=== PATIENT | female | born 1940 | race Caucasian/White ===

== ENCOUNTER 2016-09-16 04:01 | Inpatient (IN) | payer MEDICARE, OTHER ==
[~2016-09-16] VITALS: Ht 160 cm; Wt 76.5 kg
[2016-09-16 04:45] VITALS: PULSE 78
[2016-09-16 04:52] LABS: ADD SCAN DIFF NO
[2016-09-16 04:57] LABS: BASOPHILS % 0.5 % (0.0-2.0); EOSINOPHILS # 0.1 10^3/ul (0.0-0.5); HEMATOCRIT 37.8 % (37.0-47.0); HEMOGLOBIN 12.6 g/dl (12.0-16.0); LYMPHOCYTES # 1.5 10^3/ul (0.8-2.9); LYMPHOCYTES % 36.9 % (15.0-51.0); MEAN CORPUSCULAR HEMOGLOBIN 31.9 pg (29.0-33.0); MEAN CORPUSCULAR HGB CONC 33.3 g/dl (32.0-37.0); MEAN CORPUSCULAR VOLUME 95.7 fl (82.0-101.0); MEAN PLATELET VOLUME 10.9 fl (7.4-10.4); MONOCYTE # 0.4 10^3/ul (0.3-0.9); MONOCYTES % 9.9 % (0.0-11.0); NEUTROPHIL # 2.1 10^3/ul (1.6-7.5); NEUTROPHILS % 50.5 % (39.0-77.0); PLATELET COUNT 109 10^3/UL (140-415); RED BLOOD COUNT 3.95 10^6/ul (4.20-5.40); RED CELL DISTRIBUTION WIDTH 14.2 % (11.5-14.5); WHITE BLOOD COUNT 4.1 10^3/ul (4.8-10.8)
--- NOTE | 2016-09-16 05:00 | ERA ---
ER Documentation Chief Complaint Date/Time DATE: 09/16/16 TIME: 04:59 Chief Complaint BIBA RA81,lethargic, generalized weakness HPI This is a 76-year-old female comes in with complaints of worsening mental status. History of hepatic encephalopathy and cirrhosis. Patient became more altered today. No fevers or chills. History per son ROS All systems reviewed and are negative except as per history of present illness. Allergies Allergies: Coded Allergies: No Known Allergy (Unverified , 09/16/16) PMhx/Soc Hx Psychiatric Problems: Yes (depression) Hx Miscellaneous Medical Probl: Yes (cirrhosis) Hx Alcohol Use: No Hx Substance Use: No Hx Tobacco Use: No Smoking Status: Never smoker Physical Exam Vitals Vital Signs Date Time Temp Pulse Resp B/P Pulse Ox O2 Delivery O2 Flow Rate FiO2 09/16/16 04:45 78 16 129/71 97 Room Air 09/16/16 04:16 97.2 72 18 135/63 98 Physical Exam Const: [] Head: Atraumatic Eyes: Normal Conjunctiva ENT: Normal External Ears, Nose and Mouth. Neck: Full range of motion..~ No meningismus. Resp: Clear to auscultation bilaterally Cardio: Regular rate and rhythm, no murmurs Abd: Soft, non tender, non distended. Normal bowel sounds Skin: No petechiae or rashes Back: No midline or flank tenderness Ext: No cyanosis, or edema Neur: Awake and alert Psych: Normal Mood and Affect Procedures/MDM EKG: Rate/Rhythm: Normal Sinus Rhythm QRS, ST, T-waves: No changes consistent w/ acute ischemia Impression: No evidence of ischemia or arrhythmia Chest X-ray 1V Interpreted by me: Soft Tissue: No acute abnormalities Bones: No acute abnormalities Mediastinum/Cardiac Silhouette/Lungs: No acute abnormalities Medical decision making: This is a 76-year-old female because of acute encephalopathy likely secondary to worsening hepatic encephalopathy. Patient will be admitted to hospitalist. Departure Diagnosis: Primary Impression: Altered mental status Qualified Code: R41.82 - Altered mental status, unspecified altered mental status type Condition: Serious DELORIS VELASQUEZRenetta September 16, 2016 05:00
--- NOTE | 2016-09-16 05:36 | RADRPT ---
PROCEDURE: XR Chest. CLINICAL INDICATION: Altered level of consciousness TECHNIQUE: An AP view of the chest was obtained. COMPARISON: No prior exam is available for comparison. FINDINGS: There is prominence of the interstitial markings. No pleural effusion or pneumothorax is seen. Th e cardiomediastinal silhouette is mildly enlarged . Calcifications are seen within the aortic arch. The osseous structures demonstrate senescent changes. IMPRESSION: 1. Mild prominence of the interstitial markings, may reflect mild underlying interstitial edema or chronic lung changes. 2. Mild cardiomegaly and aortic atherosclerosis. RPTAT: HH .Lucy Acosta MD, MD Date Time Electronically viewed and signed by .Lucy Acosta MD, MD on 09/16/2016 05:40 .G/
[2016-09-16 05:47] LABS: ALANINE AMINOTRANSFERASE 36 IU/L (13-69); ALBUMIN 3.2 g/dl (3.3-4.9); ALBUMIN/GLOBULIN RATIO 0.69; ALKALINE PHOSPHATASE 178 IU/L (42-121); ANION GAP 11 (8-16); ASPARTATE AMINO TRANSFERASE 54 IU/L (15-46); BILIRUBIN,INDIRECT 0.5 mg/dl (0-1.1); BILIRUBIN,TOTAL 0.5 mg/dl (0.2-1.3); BLOOD UREA NITROGEN 20 mg/dl (7-20); CALCIUM 10.1 mg/dl (8.4-10.2); CARBON DIOXIDE 26 mmol/L (21-31); CHLORIDE 111 mmol/L (97-110); CREATININE 1.08 mg/dl (0.44-1.00); GLUCOSE 110 mg/dl (70-220); LACTIC ACID 1.3 mmol/L (0.5-2.2); POTASSIUM 3.6 mmol/L (3.5-5.1); SALICYLATE 2.1 mg/dl (5.0-30.0); SODIUM 144 mmol/L (135-144); TOTAL PROTEIN 7.8 g/dl (6.1-8.1)
[2016-09-16 05:48] LABS: ADD UMIC YES; URINE BILIRUBIN (Dip) NEGATIVE (NEGATIVE); URINE BLOOD (Dip) 1+ (NEGATIVE); URINE COLOR LT. YELLOW (YELLOW); URINE GLUCOSE (Dip) NEGATIVE (NEGATIVE); URINE KETONES (Dip) NEGATIVE (NEGATIVE); URINE LEUKOCYTE ESTERASE (Dip) NEGATIVE (NEGATIVE); URINE NITRITE (Dip) NEGATIVE (NEGATIVE); URINE TOTAL PROTEIN (Dip) NEGATIVE (NEGATIVE); URINE UROBILINOGEN (Dip) 0.2 E.U./dL (0.1-1.0)
[2016-09-16 05:50] LABS: ACETAMINOPHEN < 10.0 ug/ml (10.0-30.0); ETHANOL < 10.0 mg/dl; TROPONIN-I < 0.012 ng/ml (0.00-0.12)
[2016-09-16 05:54] LABS: SQUAMOUS EPITHELIAL CELL,UR OCCASIONAL
--- NOTE | 2016-09-16 06:02 | RADRPT ---
PROCEDURE: CT Brain without. CLINICAL INDICATION: Altered mental status TECHNIQUE: A CT of the brain was performed utilizing axial sections from the skull base through th e vertex without contrast. The scan was reviewed in soft tissue brain and high frequency resolution bone algorithm windows. Images were reviewed on a high-resolution PACS workstation. The exam CTDI = 44.26 mGy, and the DLP = 720.23 mGy-cm. COMPARISON: None available FINDINGS: There is mild prominence of the lateral ventricles and cerebral sulci, consistent with diffuse cereb ral atrophy. There is no intracranial hemorrhage, midline shift, or mass effect. No abnormal extra- axial fluid collections are identified. There is hypoattenuation of the periventricular white matte r. The barrios-white differentiation is well preserved. The basal cisterns are patent. The posterior fossa is unremarkable. The visualized portions of the orbits are unremarkable. The paranasal sinuses and mastoid air cells are clear. No calvarial fracture or abnormality are identified. The soft tissues are unremarkable . IMPRESSION: 1. No acute intracranial abnormality. 2. Age related senescent changes with mild diffuse cerebral atrophy. 3. Mild patchy periventricular hypoattenuation, nonspecific finding, most commonly associated with microvascular ischemic changes. RPTAT: HH .Lucy Acosta MD, MD Date Time Electronically viewed and signed by .Lucy Acosta MD, on 09/16/2016 06:02 .G/
[2016-09-16] MEDS ORDERED: CHOL400T10 PO (06:03)
[2016-09-16] MEDS ORDERED: ASPI81TA3 PO (06:03)
[2016-09-16] MEDS ORDERED: DICL75TA2 PO (06:03)
[2016-09-16] MEDS ORDERED: AMLO2.5T78 PO (06:03)
[2016-09-16] MEDS ORDERED: PREG50CA PO (06:03)
[2016-09-16] MEDS ORDERED: MEMA28CA PO (06:03)
[2016-09-16] MEDS ORDERED: MECL-77 PO (06:03)
[2016-09-16] MEDS ORDERED: FER325 PO (06:03)
[2016-09-16] MEDS ORDERED: ICOS1CAP PO (06:03)
[2016-09-16] MEDS ORDERED: LACT10SO5 PO (06:03)
[2016-09-16] MEDS ORDERED: OMEP20CA16 PO (06:03)
[2016-09-16] MEDS ORDERED: OFLO5DRO46 BOTH EYES (06:03)
[2016-09-16] MEDS ORDERED: METO-448 PO (06:03)
[2016-09-16] MEDS ORDERED: NITR100C73 PO (06:03)
[2016-09-16] MEDS ORDERED: TRAM-40 PO (06:03)
[2016-09-16] MEDS ORDERED: FURO20TA3 PO (06:05)
[2016-09-16] MEDS ORDERED: LISI40TA9 PO (06:05)
[2016-09-16 06:21] LABS: BARBITURATES NEGATIVE (NEGATIVE); BENZODIAZEPINES NEGATIVE (NEGATIVE); CANNABINOIDS NEGATIVE (NEGATIVE); COCAINE NEGATIVE (NEGATIVE); OPIATES NEGATIVE (NEGATIVE)
[2016-09-16 07:10] VITALS: BP 132/60; RESP 18
[2016-09-16 07:59] VITALS: BP 138/81; RESP 18
[2016-09-16 08:34] VITALS: BMI 24.9
[2016-09-16] MEDS ORDERED: ONDANSETRON 4 MG INJ IV PRN (12:30)
[2016-09-16] MEDS ORDERED: morphine 2 MG INJ IV PRN (12:30)
[2016-09-16] MEDS: DEXTROSE 5%-0.45% NACL 1,000 ML IV SCH (12:42)
[2016-09-16 14:08] VITALS: Ht 160 cm; Wt 76.5 kg
[2016-09-16] MEDS: OFLOXACIN 0.3% 5 ML OPH BOTH EYES SCH ×3 (15:58→20:33)
[2016-09-16] MEDS: LACTULOSE ENEMA 1,000 ML BTL PR SCH ×2 (15:59→21:57)
--- NOTE | 2016-09-16 19:00 | CONS ---
DATE OF ADMISSION: 09/16/2016 DATE OF CONSULTATION: TYPE OF CONSULTATION: Gastroenterology. Dear Dr. Perez: Thank you for asking me to see Mrs. Torres in GI consultation. HISTORY OF PRESENT ILLNESS: The patient, as you know, is a 76-year-old female who at this time is admitted to the hospital because of the history of hepatic encephalopathy. According to the nursing staff, patient became lethargic, unable to recognize people, developed weakness and excessi ve sleepiness and hence she was admitted to the hospital. She has a history of cirrhosis. Reason fo r cirrhosis not very clearly known. REVIEW OF SYSTEM: Positive for depression, cirrhosis. No history of alcoholism. MEDICATIONS: Prior to this admission includes: 1. Nitrofurantoin. 2. Ferrous sulfate. 3. Amlodipine. 4. Lisinopril. 5. Lopressor. 6. Namenda. 7. Lyrica. 8. Ultram. 9. Furosemide. 10. Lactulose. 11. Ocuflox. 12. Omeprazole. PAST MEDICAL HISTORY: The other details are not available. PAST SURGICAL HISTORY: Includes possible cholecystectomy. PHYSICAL EXAMINATION: GENERAL: The patient is a 76-year-old female who at this time is lethargic, but she is abl e to answer a couple of questions. VITAL SIGNS: Temperature is 97.5, blood pressure 138/81, pulse is 66. CARDIOVASCULAR: Normal heart sounds. RESPIRATORY: Normal breath sounds. ABDOMEN: Shows soft abdomen with no palpable masses, no tenderness, no distention. LABORATORY WORKUP: Ammonia is 93, potassium 3.6, bilirubin 0.5, AST 54, ALT 36, , hemoglobin 12.6, WBC 4100. The imaging studies are not available from the GI standpoint. Chest x-ray is grossly unremarkable. CLINICAL IMPRESSION: The patient has evidence of hepatic encephalopathy. She has got hepatic flap, confusion, excessive sleepiness, history of cirrhosis in the past, etiology of cirrhosis not clear. Alcohol is not a major role here. PLAN: At this time, continue lactulose if necessary, you could add Rifaximin 550 mg b.i.d. if neces jeancarlos. Once again, doctor, thank you for this consultation. Dictated By: YIN CARRERA/REUBEN Conf#: [id number] DID#: [id number] CC: NICKI PEREZ MD;*[facility]*
[2016-09-16 19:30] VITALS: BP 138/76; RESP 16
[2016-09-16] MEDS: MEMANTINE 10 MG TAB PO SCH (20:35)
[2016-09-17] MEDS: DEXTROSE 5%-0.45% NACL 1,000 ML IV SCH ×2 (00:31→17:50)
[2016-09-17 05:42] LABS: ADD SCAN DIFF NO
[2016-09-17 06:00] LABS: BASOPHILS % 0.2 % (0.0-2.0); EOSINOPHILS # 0.1 10^3/ul (0.0-0.5); EOSINOPHILS % 1.8 % (0.0-7.0); HEMATOCRIT 39.2 % (37.0-47.0); HEMOGLOBIN 12.6 g/dl (12.0-16.0); LYMPHOCYTES # 1.7 10^3/ul (0.8-2.9); LYMPHOCYTES % 37.6 % (15.0-51.0); MEAN CORPUSCULAR HEMOGLOBIN 31.2 pg (29.0-33.0); MEAN CORPUSCULAR HGB CONC 32.1 g/dl (32.0-37.0); MEAN PLATELET VOLUME 11.2 fl (7.4-10.4); MONOCYTE # 0.4 10^3/ul (0.3-0.9); MONOCYTES % 8.1 % (0.0-11.0); NEUTROPHIL # 2.3 10^3/ul (1.6-7.5); NEUTROPHILS % 52.1 % (39.0-77.0); PLATELET COUNT 102 10^3/UL (140-415); RED BLOOD COUNT 4.04 10^6/ul (4.20-5.40); RED CELL DISTRIBUTION WIDTH 14.4 % (11.5-14.5); WHITE BLOOD COUNT 4.4 10^3/ul (4.8-10.8)
[2016-09-17] MEDS ORDERED: PANTOPRAZOLE 40 MG INJ IV SCH (06:00)
[2016-09-17 06:15] LABS: ALBUMIN 2.9 g/dl (3.3-4.9)
[2016-09-17 06:16] LABS: POTASSIUM 3.4 mmol/L (3.5-5.1)
[2016-09-17 06:18] LABS: ALBUMIN/GLOBULIN RATIO 0.64; BILIRUBIN,INDIRECT 0.5 mg/dl (0-1.1); BILIRUBIN,TOTAL 0.5 mg/dl (0.2-1.3); CREATININE 0.65 mg/dl (0.44-1.00); TOTAL PROTEIN 7.4 g/dl (6.1-8.1)
[2016-09-17 06:19] LABS: CALCIUM 9.7 mg/dl (8.4-10.2); MAGNESIUM 1.8 mg/dl (1.7-2.5)
[2016-09-17] MEDS: LACTULOSE ENEMA 1,000 ML BTL PR SCH (06:31)
[2016-09-17 07:59] VITALS: BP 135/68; RESP 18
[2016-09-17] MEDS: OFLOXACIN 0.3% 5 ML OPH BOTH EYES SCH ×4 (09:21→21:56)
[2016-09-17] MEDS: FUROSEMIDE 20 MG TAB PO SCH (09:21)
[2016-09-17] MEDS: FISH OIL 1,000 MG CAP PO SCH (09:21)
[2016-09-17] MEDS: MEMANTINE 10 MG TAB PO SCH ×2 (09:22→21:56)
[2016-09-17] MEDS ORDERED: POTASSIUM CHLORIDE (SR) 20 MEQ TAB PO STA (12:28)
[2016-09-17] MEDS: LACTULOSE 30ML CUP PO SCH ×2 (13:04→17:49)
--- NOTE | 2016-09-17 14:02 | HP ---
DATE OF ADMISSION: 09/16/2016 CHIEF COMPLAINT: Altered mental status, generalized weakness and lethargy. HISTORY OF PRESENT ILLNESS: The patient is a 76-year-old female who was brought to the [facility] room by family, she lives with son, with complaints of worsening mental status. The patient with history of liver cirrhosis, hypertension, dementia, cataracts, CHF, depression, asthma and hist ory of CVA in 2016, and also abdominal tumor removal in 2016. Details are not available. The patie nt currently is lethargic and most of the history was provided by family members, reading medical re cords, and talking to the nursing staff. During the examination, patient has a daughter at the [facility], but she does not know much of the history. The patient underwent a CT of the brain which was n egative for any acute intracranial abnormality. Age-related senescent changes with mild diffuse cer ebral atrophy, mild patchy periventricular hypoattenuation, nonspecific finding most commonly associ ated with microvascular ischemic changes. Patient also underwent chest x-ray which showed mild cardiomegaly and aortic atherosclerosis, mild p rominence of the interstitial markings may reflect mild underlying interstitial edema, chronic lung changes. The patient's ammonia level was elevated. The patient was diagnosed with hepatic encephalo birgit and was admitted for further evaluation and management. PAST MEDICAL HISTORY: Per HPI. PAST SURGICAL HISTORY: Per HPI. FAMILY HISTORY: Noncontributory. SOCIAL HISTORY: Patient lives at home with her daughter. There is no history of tobacco use, alcoh ol use or illicit drug use. ALLERGIES: NO KNOWN ALLERGIES. HOME MEDICATIONS: Include: 1. Amlodipine. 2. Aspirin. 3. Vitamin D. 4. Diclofenac. 5. Ferrous sulfate. 6. Lasix. 7. Lactulose. 8. Lisinopril. 9. Meclizine. 10. Metoprolol. 11. Nitrofurantoin. 12. Ofloxacin. 13. Lyrica. 14. Tramadol. 15. ____ 16. Namenda. 17. Omeprazole. REVIEW OF SYSTEMS: A 12-point review of systems is negative unless what is mentioned in the HPI. T here is no fever, nausea, vomiting, diarrhea reported. PHYSICAL ASSESSMENT GENERAL: Well-developed, obese female currently is awake, alert, follows immediate commands; howeve r, lethargic but arousable. VITAL SIGNS: Temperature 97.5, pulse 66, blood pressure 138/81, respiratory rate 18, oxygen saturat ion 98% on room air. HEENT: Atraumatic, normocephalic. Pupils are equal, round, reactive to light and accommodation. NECK: Supple, no cervical lymphadenopathy, no thyromegaly. CHEST: Lungs clear bilaterally. There is no rhonchi, rales noted. CARDIOVASCULAR: Normal S1, S2. No murmurs, gallops, clicks, rubs noted. ABDOMEN: Protuberant, soft, nondistended, nontender. Bowel sounds present. There is no guarding, no rebound tenderness. EXTREMITIES: No edema, clubbing, cyanosis. Pulses equal bilaterally 2+. SKIN: There is no rash, petechiae noted. NEUROLOGICAL: The patient is lethargic but easily arousable. Moves all extremities. Alert to name . Otherwise, confused. LABORATORY DATA: On admission, CBC: White blood cells 4.1, hemoglobin 12.6, hematocrit 37.8, plate lets 109. Chemistry: Sodium is 144, potassium 3.6, chloride 111, carbon dioxide 26, anion gap 11, BUN is 20, creatinine 1.08, glucose 110. Lactic acid is 1.3, AST is 54, ALT is 36, alkaline phospha tase is 117, ammonia is 93. Troponin less than 0.012. Albumin is 3.2. ASSESSMENT AND PLAN 1. Hepatic encephalopathy. Continue patient on lactulose p.o. if the patient passes swallow evalua tion. If the patient is unable, will give lactulose rectally. 2. Liver cirrhosis. Will ask Dr. Farias to follow up the patient in gastroenterology consultation. 3. Thrombocytopenia. 4. Chronic congestive heart failure. 5. Hypertension. 6. Dementia. 7. History of asthma. 8. Depression. 9. History of cerebrovascular accident. Am going to continue Protonix for peptic ulcer disease pro phylaxis and sequential compression devices for deep venous thrombosis prophylaxis. Start patient o n IV fluids with dextrose while the patient is n.p.o. Further recommendations based on clinical course. Plan of care discussed with Dr. Perez. Dictated By: RACHEL HOFF [employer] TECHNICAL ARCHITECT for NICKI PEREZ MD SR/NTS Conf#: [id number] [facility]#: [id number]
--- NOTE | 2016-09-17 18:56 | PN ---
Date/Time of Note Date/Time of Note DATE: 09/17/16 TIME: 18:50 Assessment/Plan VTE Prophylaxis VTE Prophylaxis Intervention: SCD's Lines/Catheters [facility] [place] Urinary Cath still in place: No Assessment/Plan Chief Complaint/Hosp Course ASSESSMENT AND PLAN 1. Hepatic encephalopathy. Continue patient on lactulose, monitor ammonia level. 2. Liver cirrhosis. Dr. Farias is following in gastroenterology consultation. 3. Thrombocytopenia most likely secondary to liver cirrhosis. 4. Chronic congestive heart failure. Continue diuretics. 5. Hypertension. Patient is currently normotensive. 6. Dementia. 7. History of asthma. 8. Depression. 9. History of cerebrovascular accident. 10. Hypokalemia, will replace potassium. Continue Protonix for peptic ulcer disease prophylaxis and sequential compression devices for deep venous thrombosis prophylaxis. Further recommendations based on clinical course. Plan of care discussed with Dr. Perez. Problems: Exam/Review of Systems Vital Signs Vitals Vital Signs Date Time Temp Pulse Resp B/P Pulse Ox O2 Delivery O2 Flow Rate FiO2 09/17/16 07:59 98.1 81 18 135/68 99 09/16/16 04:45 Room Air Intake and Output 09/16/16 09/16/16 09/17/16 15:00 23:00 07:00 Intake Total 300 ml 1110 ml Output Total 3 ml 2 ml Balance 297 ml 1108 ml Exam Constitutional: alert Psych: confusion Head: normocephalic Neck: supple Respiratory: clear to auscultation, normal air movement Cardiovascular: nl pulses, regular rate and rhythm Gastrointestinal: non-tender, soft Extremities: normal pulses Skin: nl turgor Results Result Diagram: 09/17/16 0429 09/17/16 0429 Results 24 hrs Laboratory Tests Test 09/17/16 04:29 White Blood Count 4.4 L Red Blood Count 4.04 L Hemoglobin 12.6 Hematocrit 39.2 Mean Corpuscular Volume 97.0 Mean Corpuscular Hemoglobin 31.2 Mean Corpuscular Hemoglobin Concent 32.1 Red Cell Distribution Width 14.4 Platelet Count 102 L Mean Platelet Volume 11.2 H Neutrophils % 52.1 Lymphocytes % 37.6 Monocytes % 8.1 Eosinophils % 1.8 Basophils % 0.2 Nucleated Red Blood Cells % 0.0 Neutrophils # 2.3 Lymphocytes # 1.7 Monocytes # 0.4 Eosinophils # 0.1 Basophils # 0.0 Nucleated Red Blood Cells # 0.0 Sodium Level 144 Potassium Level 3.4 L Chloride Level 114 H Carbon Dioxide Level 23 Anion Gap 10 Blood Urea Nitrogen 12 Creatinine 0.65 Glucose Level 109 Calcium Level 9.7 Magnesium Level 1.8 Total Bilirubin 0.5 Direct Bilirubin 0.00 Indirect Bilirubin 0.5 Aspartate Amino Transf (AST/SGOT) 45 Alanine Aminotransferase (ALT/SGPT) 32 Alkaline Phosphatase 139 H Total Protein 7.4 Albumin 2.9 L Globulin 4.50 H Albumin/Globulin Ratio 0.64 Medications Medications Current Medications Dextrose/Sodium Chloride (D5-1/2ns) 1,000 ml @ 70 mls/hr [id number] IV Last administered on 09/17/16 17:50; Admin Dose 70 MLS/HR; Start 09/16/16 at 12:03 Ondansetron HCl (Zofran Inj) 4 mg Q6H PRN IV NAUSEA AND/OR VOMITING; Start at 12:30 Morphine Sulfate (morphine) 2 mg Q4H PRN IV SEVERE PAIN LEVEL 7-10; Start 09/16 at 12:30 Furosemide (Lasix) 20 mg DAILY PO Last administered on 09/17/16 09:21; Admin Dose 20 MG; Start 09/17/16 at 09:00 Ofloxacin (Ocuflox) 1 drop QID BOTH EYES Last administered on 09/17/16 17:49; Admin Dose 1 DROP; Start 09/16/16 at 13:00 Fish Oil (Fish Oil) 1,000 mg DAILY PO Last administered on 09/17/16 09:21; Admin Dose 1,000 MG; Start 09/17/16 at 09:00 Memantine (Namenda) 10 mg BID PO Last administered on 09/17/16 09:22; Admin Dose 10 MG; Start 09/16/16 at 21:00 Lactulose (Enulose) 30 gm Q6 PO Last administered on 09/17/16 17:49; Admin Dose 30 GM; Start 09/17/16 at 12:30 Pantoprazole (Protonix Tab) 40 mg DAILY@06 PO ; Start 09/18/16 at 06:00 RACHEL HOFF September 17, 2016 18:56
[2016-09-17 20:38] VITALS: BP 144/72; RESP 18
--- NOTE | 2016-09-18 00:03 | CONS ---
DATE OF ADMISSION: 09/16/2016 DATE OF CONSULTATION: CHIEF COMPLAINT: The patient does not complain, does not talk. HISTORY OF PRESENT ILLNESS: The patient is admitted with hepatic encephalopathy. She has been on l actulose and she has been having good bowel movements. She is much more alert now. She has improve d a great deal from the hepatic encephalopathy standpoint. The ammonia is not available today. It was 93 yesterday. The alkaline phosphatase is 139, bilirubin 0.5, AST 54 and 45, AST 32. WBC count 4400. CLINICAL IMPRESSION: Improving hepatic encephalopathy. PLAN: Continue lactulose. It may have to be cut down if the diarrhea is significant. Dictated By: YIN PERAZA MD NC/NTS Conf#: [id number] DID#: [id number] CC: DAVON HOLMAN MD; YIN PERAZA MD;*[facility]*
[2016-09-18] MEDS: LACTULOSE 30ML CUP PO SCH ×4 (05:02→17:26)
[2016-09-18] MEDS: PANTOPRAZOLE (EC) 40 MG TAB PO SCH (05:02)
[2016-09-18 06:48] LABS: CALCIUM 9.8 mg/dl (8.4-10.2); CREATININE 0.72 mg/dl (0.44-1.00); POTASSIUM 3.9 mmol/L (3.5-5.1)
[2016-09-18] MEDS: DEXTROSE 5%-0.45% NACL 1,000 ML IV SCH ×3 (06:57→21:42)
[2016-09-18 08:03] VITALS: BP 126/72; RESP 16
[2016-09-18] MEDS: MEMANTINE 10 MG TAB PO SCH ×2 (09:16→21:41)
[2016-09-18] MEDS: FISH OIL 1,000 MG CAP PO SCH (09:16)
[2016-09-18] MEDS: FUROSEMIDE 20 MG TAB PO SCH (09:17)
[2016-09-18] MEDS: OFLOXACIN 0.3% 5 ML OPH BOTH EYES SCH ×4 (09:17→21:41)
--- NOTE | 2016-09-18 19:29 | PN ---
Date/Time of Note Date/Time of Note DATE: 09/18/16 TIME: 19:28 Assessment/Plan VTE Prophylaxis VTE Prophylaxis Intervention: other Lines/Catheters [facility] Peripheral IV Urinary Cath still in place: No Assessment/Plan Assessment/Plan 1. Hepatic encephalopathy. Continue patient on lactulose, monitor ammonia level. 2. Liver cirrhosis. Dr. Farias is following in gastroenterology consultation. 3. Thrombocytopenia most likely secondary to liver cirrhosis. 4. Chronic congestive heart failure. Continue diuretics. 5. Hypertension. Patient is currently normotensive. 6. Dementia. 7. History of asthma. 8. Depression. 9. History of cerebrovascular accident. 10. Hypokalemia, will replace potassium. Continue Protonix for peptic ulcer disease prophylaxis and sequential compression devices for deep venous thrombosis prophylaxis. Further recommendations based on clinical course. Plan of care discussed with Dr. Perez. Subjective 24 Hr Interval Summary Free Text/Dictation aler, awake, resting in bed, seems comfortable, alert/oriented to name, place, person, NH3 level still high, family at bed side- all Qs answered, dw staff- no new issues reported. Constitutional: improved Respiratory: no complaints Cardiovascular: no complaints Gastrointestinal: no complaints Exam/Review of Systems Vital Signs Vitals Vital Signs Date Time Temp Pulse Resp B/P Pulse Ox O2 Delivery O2 Flow Rate FiO2 09/18/16 08:03 98.6 90 16 126/72 93 09/16/16 04:45 Room Air Intake and Output 09/17/16 09/17/16 09/18/16 15:00 23:00 07:00 Intake Total 1150 ml 1010 ml Output Total 4 ml 3 ml Balance 1146 ml 1007 ml Exam Constitutional: alert, well developed Psych: nl mood/affect Head: normocephalic Eyes: EOMI, nl sclera Neck: non-tender, supple Respiratory: clear to auscultation, normal air movement Cardiovascular: nl pulses, regular rate and rhythm Gastrointestinal: non-tender, soft Musculoskeletal: nl extremities to inspection, other Extremities: normal pulses Neurological: nl mental status, nl speech Skin: nl turgor, other Lymph: nontender Results Result Diagram: 09/17/16 0429 09/18/16 0540 Results 24 hrs Laboratory Tests Test 09/18/16 05:40 Sodium Level 142 Potassium Level 3.9 Chloride Level 117 H Carbon Dioxide Level 19 L Anion Gap 10 Blood Urea Nitrogen 11 Creatinine 0.72 Glucose Level 116 Calcium Level 9.8 Ammonia 65 H Medications Medications Current Medications Dextrose/Sodium Chloride (D5-1/2ns) 1,000 ml @ 70 mls/hr [id number] IV Last administered on 09/18/16 09:17; Admin Dose 70 MLS/HR; Start 09/16/16 at 12:03 Ondansetron HCl (Zofran Inj) 4 mg Q6H PRN IV NAUSEA AND/OR VOMITING; Start at 12:30 Morphine Sulfate (morphine) 2 mg Q4H PRN IV SEVERE PAIN LEVEL 7-10; Start 09/16 at 12:30 Furosemide (Lasix) 20 mg DAILY PO Last administered on 09/18/16 09:17; Admin Dose 20 MG; Start 09/17/16 at 09:00 Ofloxacin (Ocuflox) 1 drop QID BOTH EYES Last administered on 09/18/16 17:26; Admin Dose 1 DROP; Start 09/16/16 at 13:00 Fish Oil (Fish Oil) 1,000 mg DAILY PO Last administered on 09/18/16 09:16; Admin Dose 1,000 MG; Start 09/17/16 at 09:00 Memantine (Namenda) 10 mg BID PO Last administered on 09/18/16 09:16; Admin Dose 10 MG; Start 09/16/16 at 21:00 Lactulose (Enulose) 30 gm Q6 PO Last administered on 09/18/16 17:26; Admin Dose 30 GM; Start 09/17/16 at 12:30 Pantoprazole (Protonix Tab) 40 mg DAILY@06 PO Last administered on 09/18/16 05 :02; Admin Dose 40 MG; Start 09/18/16 at 06:00 SALLY CHRISTINA September 18, 2016 19:29
[2016-09-19] MEDS: LACTULOSE 30ML CUP PO SCH ×5 (01:12→23:44)
[2016-09-19] MEDS: PANTOPRAZOLE (EC) 40 MG TAB PO SCH (05:27)
[2016-09-19 05:34] LABS: POTASSIUM 3.5 mmol/L (3.5-5.1)
[2016-09-19 05:37] LABS: CREATININE 0.66 mg/dl (0.44-1.00)
[2016-09-19 05:38] LABS: CALCIUM 9.6 mg/dl (8.4-10.2)
[2016-09-19 07:41] VITALS: BP 126/68; RESP 18
[2016-09-19] MEDS: FUROSEMIDE 20 MG TAB PO SCH (09:14)
[2016-09-19] MEDS: MEMANTINE 10 MG TAB PO SCH ×2 (09:14→20:09)
[2016-09-19] MEDS: FISH OIL 1,000 MG CAP PO SCH (09:14)
[2016-09-19] MEDS: OFLOXACIN 0.3% 5 ML OPH BOTH EYES SCH ×4 (09:15→20:09)
[2016-09-19] MEDS: DEXTROSE 5%-0.45% NACL 1,000 ML IV SCH (11:43)
--- NOTE | 2016-09-19 17:00 | PN ---
Date/Time of Note Date/Time of Note DATE: 09/19/16 TIME: 16:59 Assessment/Plan VTE Prophylaxis VTE Prophylaxis Intervention: SCD's Lines/Catheters IV [facility]ter [facility] (from [facility] Peripheral IV Urinary Cath still in place: No Assessment/Plan Chief Complaint/Hosp Course Patient is more awake alert, family wants patient to be full code, continue to monitor ammonia level, start physical therapy. ASSESSMENT AND PLAN 1. Hepatic encephalopathy. Continue patient on lactulose, monitor ammonia level. 2. Liver cirrhosis. Dr. Farias is following in gastroenterology consultation. 3. Thrombocytopenia most likely secondary to liver cirrhosis. 4. Chronic congestive heart failure. Continue diuretics. 5. Hypertension. Patient is currently normotensive. 6. Dementia. 7. History of asthma. 8. Depression. 9. History of cerebrovascular accident. 10. Hypokalemia, will replace potassium. Continue Protonix for peptic ulcer disease prophylaxis and sequential compression devices for deep venous thrombosis prophylaxis. Further recommendations based on clinical course. Plan of care discussed with Dr. Perez. Problems: Exam/Review of Systems Vital Signs Vitals Vital Signs Date Time Temp Pulse Resp B/P Pulse Ox O2 Delivery O2 Flow Rate FiO2 09/19/16 07:41 98.0 86 18 126/68 98 09/16/16 04:45 Room Air Intake and Output 09/18/16 09/18/16 09/19/16 15:00 23:00 07:00 Intake Total 230 ml 1980 ml 890 ml Output Total 3 ml 2 ml Balance 230 ml 1977 ml 888 ml Exam Constitutional: alert Psych: confusion Head: normocephalic Neck: supple Respiratory: clear to auscultation, normal air movement Cardiovascular: nl pulses, regular rate and rhythm Gastrointestinal: non-tender, soft Extremities: normal pulses Skin: nl turgor Results Result Diagram: 09/17/16 0429 09/19/16 0445 Results 24 hrs Laboratory Tests Test 09/18/16 20:15 09/19/16 04:45 Ammonia 53 H Sodium Level 145 H Potassium Level 3.5 Chloride Level 117 H Carbon Dioxide Level 20 L Anion Gap 12 Blood Urea Nitrogen 8 Creatinine 0.66 Glucose Level 106 Calcium Level 9.6 Medications Medications Current Medications Dextrose/Sodium Chloride (D5-1/2ns) 1,000 ml @ 70 mls/hr [id number] IV Last administered on 09/19/16t 11:43; Admin Dose 70 MLS/HR; Start 09/16/16 at 12:03 Ondansetron HCl (Zofran Inj) 4 mg Q6H PRN IV NAUSEA AND/OR VOMITING; Start at 12:30 Morphine Sulfate (morphine) 2 mg Q4H PRN IV SEVERE PAIN LEVEL 7-10; Start 09/16 at 12:30 Furosemide (Lasix) 20 mg DAILY PO Last administered on 09/19/16 09:14; Admin Dose 20 MG; Start 09/17/16 at 09:00 Ofloxacin (Ocuflox) 1 drop QID BOTH EYES Last administered on 09/19/16 12:19; Admin Dose 1 DROP; Start 09/16/16 at 13:00 Fish Oil (Fish Oil) 1,000 mg DAILY PO Last administered on 09/19/16 09:14; Admin Dose 1,000 MG; Start 09/17/16 at 09:00 Memantine (Namenda) 10 mg BID PO Last administered on 09/19/16 09:14; Admin Dose 10 MG; Start 09/16/16 at 21:00 Lactulose (Enulose) 30 gm Q6 PO Last administered on 09/19/16 12:19; Admin Dose 30 GM; Start 09/17/16 at 12:30 Pantoprazole (Protonix Tab) 40 mg DAILY@06 PO Last administered on 09/19/16 05 :27; Admin Dose 40 MG; Start 09/18/16 at 06:00 RACHEL HOFF September 19, 2016 17:00
[2016-09-19 20:22] VITALS: BP 145/77; RESP 20
[2016-09-20] MEDS: DEXTROSE 5%-0.45% NACL 1,000 ML IV SCH ×2 (01:23→15:04)
[2016-09-20] MEDS: LACTULOSE 30ML CUP PO SCH ×4 (05:20→23:05)
[2016-09-20] MEDS: PANTOPRAZOLE (EC) 40 MG TAB PO SCH (05:20)
[2016-09-20 05:58] LABS: CALCIUM 9.7 mg/dl (8.4-10.2); CREATININE 0.61 mg/dl (0.44-1.00); POTASSIUM 3.3 mmol/L (3.5-5.1)
[2016-09-20 08:16] VITALS: BP 134/71; RESP 18
[2016-09-20] MEDS: MEMANTINE 10 MG TAB PO SCH ×2 (09:21→21:21)
[2016-09-20] MEDS: FISH OIL 1,000 MG CAP PO SCH (09:22)
[2016-09-20] MEDS: OFLOXACIN 0.3% 5 ML OPH BOTH EYES SCH ×4 (09:22→21:21)
[2016-09-20] MEDS: FUROSEMIDE 20 MG TAB PO SCH (09:22)
[2016-09-20] MEDS ORDERED: POTASSIUM CHLORIDE (SR) 20 MEQ TAB PO STA (13:55)
--- NOTE | 2016-09-20 13:55 | PN ---
Date/Time of Note Date/Time of Note DATE: 09/20/16 TIME: 13:54 Assessment/Plan VTE Prophylaxis VTE Prophylaxis Intervention: other Lines/Catheters IV C[facility]ter Type (from [facility] Peripheral IV Urinary Cath still in place: No Assessment/Plan Chief Complaint/Hosp Course 1. Hepatic encephalopathy. Continue patient on lactulose, monitor ammonia level. 2. Liver cirrhosis. Dr. Farias is following in gastroenterology consultation. 3. Thrombocytopenia most likely secondary to liver cirrhosis. 4. Chronic congestive heart failure. Continue diuretics. 5. Hypertension. Patient is currently normotensive. 6. Dementia. 7. History of asthma. 8. Depression. 9. History of cerebrovascular accident. 10. Hypokalemia, will replace potassium. Problems: Subjective 24 Hr Interval Summary Free Text/Dictation Patient states feels slightly better Exam/Review of Systems Vital Signs Vitals Vital Signs Date Time Temp Pulse Resp B/P Pulse Ox O2 Delivery O2 Flow Rate FiO2 09/20/16 08:16 98.4 89 18 134/71 98 Intake and Output 09/19/16 09/19/16 09/20/16 15:00 23:00 07:00 Intake Total 420 ml 1740 ml 935 ml Balance 420 ml 1740 ml 935 ml Exam Constitutional: well developed Head: atraumatic, normocephalic Neck: supple Respiratory: clear to auscultation Cardiovascular: regular rate and rhythm Gastrointestinal: non-tender, soft Extremities: normal pulses Results Result Diagram: 09/17/16 0429 09/20/16 0430 Results 24 hrs Laboratory Tests Test 09/20/16 04:30 Sodium Level 142 Potassium Level 3.3 L Chloride Level 119 H Carbon Dioxide Level 21 Anion Gap 5 L Blood Urea Nitrogen 6 L Creatinine 0.61 Glucose Level 99 Calcium Level 9.7 Ammonia 68 H Medications Medications Current Medications Dextrose/Sodium Chloride (D5-1/2ns) 1,000 ml @ 70 mls/hr [id number] IV Last administered on 09/20/16t 01:23; Admin Dose 70 MLS/HR; Start 09/16/16 at 12:03 Ondansetron HCl (Zofran Inj) 4 mg Q6H PRN IV NAUSEA AND/OR VOMITING; Start at 12:30 Morphine Sulfate (morphine) 2 mg Q4H PRN IV SEVERE PAIN LEVEL 7-10; Start 09/16 at 12:30 Furosemide (Lasix) 20 mg DAILY PO Last administered on 09/20/16 09:22; Admin Dose 20 MG; Start 09/17/16 at 09:00 Ofloxacin (Ocuflox) 1 drop QID BOTH EYES Last administered on 09/20/16 12:11; Admin Dose 1 DROP; Start 09/16/16 at 13:00 Fish Oil (Fish Oil) 1,000 mg DAILY PO Last administered on 09/20/16 09:22; Admin Dose 1,000 MG; Start 09/17/16 at 09:00 Memantine (Namenda) 10 mg BID PO Last administered on 09/20/16 09:21; Admin Dose 10 MG; Start 09/16/16 at 21:00 Lactulose (Enulose) 30 gm Q6 PO Last administered on 09/20/16 12:11; Admin Dose 30 GM; Start 09/17/16 at 12:30 Pantoprazole (Protonix Tab) 40 mg DAILY@06 PO Last administered on 09/20/16 05 :20; Admin Dose 40 MG; Start 09/18/16 at 06:00 DAVON HOLMAN September 20, 2016 13:55
[2016-09-20 20:08] VITALS: BP 138/76; RESP 17
[2016-09-21] MEDS: PANTOPRAZOLE (EC) 40 MG TAB PO SCH (05:11)
[2016-09-21] MEDS: DEXTROSE 5%-0.45% NACL 1,000 ML IV SCH ×2 (05:11→22:38)
[2016-09-21] MEDS: LACTULOSE 30ML CUP PO SCH ×4 (05:11→23:38)
[2016-09-21 07:02] LABS: POTASSIUM 3.4 mmol/L (3.5-5.1)
[2016-09-21 07:04] LABS: CREATININE 0.61 mg/dl (0.44-1.00)
[2016-09-21 07:05] LABS: CALCIUM 9.7 mg/dl (8.4-10.2)
[2016-09-21 08:00] VITALS: BP 151/72; RESP 17
[2016-09-21] MEDS: MEMANTINE 10 MG TAB PO SCH ×2 (09:02→20:33)
[2016-09-21] MEDS: FISH OIL 1,000 MG CAP PO SCH (09:02)
[2016-09-21] MEDS: OFLOXACIN 0.3% 5 ML OPH BOTH EYES SCH ×4 (09:03→20:33)
[2016-09-21] MEDS: FUROSEMIDE 20 MG TAB PO SCH (09:04)
--- NOTE | 2016-09-21 13:53 | PN ---
Date/Time of Note Date/Time of Note DATE: 09/21/16 TIME: 13:53 Assessment/Plan VTE Prophylaxis VTE Prophylaxis Intervention: other Lines/Catheters IV Catheter Type (from [facility]): Saline Lock Urinary Cath still in place: No Assessment/Plan Chief Complaint/Hosp Course 1. Hepatic encephalopathy. Continue patient on lactulose, monitor ammonia level. 2. Liver cirrhosis. Dr. Farias is following in gastroenterology consultation. 3. Thrombocytopenia most likely secondary to liver cirrhosis. 4. Chronic congestive heart failure. Continue diuretics. 5. Hypertension. Patient is currently normotensive. 6. Dementia. 7. History of asthma. 8. Depression. 9. History of cerebrovascular accident. 10. Hypokalemia, will replace potassium. Problems: Subjective 24 Hr Interval Summary Free Text/Dictation Patient has no complaints Exam/Review of Systems Vital Signs Vitals Vital Signs Date Time Temp Pulse Resp B/P Pulse Ox O2 Delivery O2 Flow Rate FiO2 09/21/16 08:00 98.6 86 17 151/72 96 Intake and Output 09/20/16 09/20/16 09/21/16 15:00 23:00 07:00 Intake Total 360 ml 1290 ml Balance 360 ml 1290 ml Exam Constitutional: well developed Head: atraumatic, normocephalic Neck: supple Respiratory: diminished breath sounds Cardiovascular: regular rate and rhythm Gastrointestinal: non-tender, soft Extremities: normal pulses Results Result Diagram: 09/17/16 0429 09/21/16 0429 Results 24 hrs Laboratory Tests Test 09/21/16 04:29 Sodium Level 146 H Potassium Level 3.4 L Chloride Level 126 H Carbon Dioxide Level 22 Anion Gap 1 L Blood Urea Nitrogen 6 L Creatinine 0.61 Glucose Level 81 Calcium Level 9.7 Ammonia 68 H Medications Medications Current Medications Dextrose/Sodium Chloride (D5-1/2ns) 1,000 ml @ 70 mls/hr [id number] IV Last administered on 09/21/16t 05:11; Admin Dose 70 MLS/HR; Start 09/16/16 at 12:03 Ondansetron HCl (Zofran Inj) 4 mg Q6H PRN IV NAUSEA AND/OR VOMITING; Start at 12:30 Morphine Sulfate (morphine) 2 mg Q4H PRN IV SEVERE PAIN LEVEL 7-10; Start 09/16 at 12:30 Furosemide (Lasix) 20 mg DAILY PO Last administered on 09/21/16 09:04; Admin Dose 20 MG; Start 09/17/16 at 09:00 Ofloxacin (Ocuflox) 1 drop QID BOTH EYES Last administered on 09/21/16 12:31; Admin Dose 1 DROP; Start 09/16/16 at 13:00 Fish Oil (Fish Oil) 1,000 mg DAILY PO Last administered on 09/21/16 09:02; Admin Dose 1,000 MG; Start 09/17/16 at 09:00 Memantine (Namenda) 10 mg BID PO Last administered on 09/21/16 09:02; Admin Dose 10 MG; Start 09/16/16 at 21:00 Lactulose (Enulose) 30 gm Q6 PO Last administered on 09/21/16 12:31; Admin Dose 30 GM; Start 09/17/16 at 12:30 Pantoprazole (Protonix Tab) 40 mg DAILY@06 PO Last administered on 09/21/16 05 :11; Admin Dose 40 MG; Start 09/18/16 at 06:00 DAVON HOLMAN September 21, 2016 13:53
[2016-09-21] MEDS ORDERED: POTASSIUM CHLORIDE (SR) 20 MEQ TAB PO STA (14:04)
[2016-09-21 19:35] VITALS: BP 137/78; RESP 20
[2016-09-22] MEDS: PANTOPRAZOLE (EC) 40 MG TAB PO SCH (05:39)
[2016-09-22] MEDS: LACTULOSE 30ML CUP PO SCH ×4 (05:39→23:17)
[2016-09-22 07:10] VITALS: BP 123/76; RESP 16
[2016-09-22] MEDS: OFLOXACIN 0.3% 5 ML OPH BOTH EYES SCH ×4 (09:08→20:42)
[2016-09-22] MEDS: FUROSEMIDE 20 MG TAB PO SCH (09:08)
[2016-09-22] MEDS: MEMANTINE 10 MG TAB PO SCH ×2 (09:08→20:42)
[2016-09-22] MEDS: FISH OIL 1,000 MG CAP PO SCH (09:08)
--- NOTE | 2016-09-22 11:26 | PN ---
Date/Time of Note Date/Time of Note DATE: 09/22/16 TIME: 11:25 Assessment/Plan VTE Prophylaxis VTE Prophylaxis Intervention: other Lines/Catheters IV C[facility]ter Type [facility]from [facility]): Peripheral IV Urinary Cath still in place: No Assessment/Plan Chief Complaint/Hosp Course 1. Hepatic encephalopathy. Continue patient on lactulose, monitor ammonia level. 2. Liver cirrhosis. Dr. Farias is following in gastroenterology consultation. 3. Thrombocytopenia most likely secondary to liver cirrhosis. 4. Chronic congestive heart failure. Continue diuretics. 5. Hypertension. Patient is currently normotensive. 6. Dementia. 7. History of asthma. 8. Depression. 9. History of cerebrovascular accident. 10. Hypokalemia, will replace potassium. Problems: Subjective 24 Hr Interval Summary Free Text/Dictation Patient has no complaints Exam/Review of Systems Vital Signs Vitals Vital Signs Date Time Temp Pulse Resp B/P Pulse Ox O2 Delivery O2 Flow Rate FiO2 09/22/16 07:10 98.2 79 16 123/76 95 Intake and Output 09/21/16 09/21/16 09/22/16 15:00 23:00 07:00 Intake Total 1770 ml 750 ml Balance 1770 ml 750 ml Exam Constitutional: well developed Head: atraumatic, normocephalic Neck: supple Respiratory: clear to auscultation Cardiovascular: regular rate and rhythm Gastrointestinal: non-tender, soft Extremities: normal pulses Results Result Diagram: 09/21/16 0429 Medications Medications Current Medications Dextrose/Sodium Chloride (D5-1/2ns) 1,000 ml @ 70 mls/hr [id number] IV Last administered on 09/21/16 22:38; Admin Dose 70 MLS/HR; Start 09/16/16 at 12:03 Ondansetron HCl (Zofran Inj) 4 mg Q6H PRN IV NAUSEA AND/OR VOMITING; Start at 12:30 Morphine Sulfate (morphine) 2 mg Q4H PRN IV SEVERE PAIN LEVEL 7-10; Start 09/16 at 12:30 Furosemide (Lasix) 20 mg DAILY PO Last administered on 09/22/16 09:08; Admin Dose 20 MG; Start 09/17/16 at 09:00 Ofloxacin (Ocuflox) 1 drop QID BOTH EYES Last administered on 09/22/16 09:08; Admin Dose 1 DROP; Start 09/16/16 at 13:00 Fish Oil (Fish Oil) 1,000 mg DAILY PO Last administered on 09/22/16 09:08; Admin Dose 1,000 MG; Start 09/17/16 at 09:00 Memantine (Namenda) 10 mg BID PO Last administered on 09/22/16 09:08; Admin Dose 10 MG; Start 09/16/16 at 21:00 Lactulose (Enulose) 30 gm Q6 PO Last administered on 09/22/16 05:39; Admin Dose 30 GM; Start 09/17/16 at 12:30 Pantoprazole (Protonix Tab) 40 mg DAILY@06 PO Last administered on 09/22/16 05 :39; Admin Dose 40 MG; Start 09/18/16 at 06:00 DAVON HOLMAN September 22, 2016 11:26
[2016-09-22] MEDS: DEXTROSE 5%-0.45% NACL 1,000 ML IV SCH (11:42)
[2016-09-22 20:29] VITALS: BP 117/59; RESP 19
[2016-09-23] MEDS: DEXTROSE 5%-0.45% NACL 1,000 ML IV SCH ×3 (02:17→21:29)
[2016-09-23] MEDS: PANTOPRAZOLE (EC) 40 MG TAB PO SCH (05:15)
[2016-09-23] MEDS: LACTULOSE 30ML CUP PO SCH ×3 (05:15→18:06)
[2016-09-23 06:10] LABS: ADD SCAN DIFF NO
[2016-09-23 06:14] LABS: BASOPHILS % 0.3 % (0.0-2.0); EOSINOPHILS # 0.2 10^3/ul (0.0-0.5); EOSINOPHILS % 3.9 % (0.0-7.0); HEMATOCRIT 34.4 % (37.0-47.0); HEMOGLOBIN 11.7 g/dl (12.0-16.0); LYMPHOCYTES # 1.8 10^3/ul (0.8-2.9); LYMPHOCYTES % 47.5 % (15.0-51.0); MEAN CORPUSCULAR HEMOGLOBIN 32.5 pg (29.0-33.0); MEAN CORPUSCULAR VOLUME 95.6 fl (82.0-101.0); MEAN PLATELET VOLUME 11.3 fl (7.4-10.4); MONOCYTE # 0.3 10^3/ul (0.3-0.9); MONOCYTES % 8.6 % (0.0-11.0); NEUTROPHIL # 1.5 10^3/ul (1.6-7.5); NEUTROPHILS % 39.4 % (39.0-77.0); PLATELET COUNT 101 10^3/UL (140-415); WHITE BLOOD COUNT 3.8 10^3/ul (4.8-10.8)
[2016-09-23 06:39] LABS: CALCIUM 9.5 mg/dl (8.4-10.2); CREATININE 0.61 mg/dl (0.44-1.00)
[2016-09-23 08:00] VITALS: BP 113/65; RESP 20
[2016-09-23] MEDS: MEMANTINE 10 MG TAB PO SCH ×2 (08:42→21:28)
[2016-09-23] MEDS: FISH OIL 1,000 MG CAP PO SCH (08:42)
[2016-09-23] MEDS: OFLOXACIN 0.3% 5 ML OPH BOTH EYES SCH ×4 (08:45→21:29)
[2016-09-23] MEDS: FUROSEMIDE 20 MG TAB PO SCH (08:45)
[2016-09-23] MEDS ORDERED: POTASSIUM CHLORIDE (SR) 20 MEQ TAB PO STA (14:49)
--- NOTE | 2016-09-23 16:55 | PN ---
Date/Time of Note Date/Time of Note DATE: 09/23/16 TIME: 16:42 Assessment/Plan VTE Prophylaxis VTE Prophylaxis Intervention: SCD's Lines/Catheters IV Catheter Type (from [facility]): Peripheral IV Urinary Cath still in place: No Assessment/Plan Chief Complaint/Hosp Course Patient is at her neurological baseline, was able to work with physical therapy , check ammonia level tomorrow, continue PT. ASSESSMENT AND PLAN 1. Hepatic encephalopathy, resolving continue patient on lactulose, monitor ammonia level. 2. Liver cirrhosis. Dr. Farias is following in gastroenterology consultation. 3. Thrombocytopenia most likely secondary to liver cirrhosis. 4. Chronic congestive heart failure. Continue diuretics. 5. Hypertension. Patient is currently normotensive. 6. Dementia. Continue Namenda. 7. History of asthma. 8. Depression. 9. History of cerebrovascular accident. 10. Hypokalemia, potassium replaced continue to monitor electrolytes. Continue Protonix for peptic ulcer disease prophylaxis and sequential compression devices for deep venous thrombosis prophylaxis. Further recommendations based on clinical course. Plan of care discussed with Dr. Perez. Problems: Exam/Review of Systems Vital Signs Vitals Vital Signs Date Time Temp Pulse Resp B/P Pulse Ox O2 Delivery O2 Flow Rate FiO2 09/23/16 08:00 98.1 77 20 113/65 97 Intake and Output 09/22/16 09/22/16 09/23/16 15:00 23:00 07:00 Intake Total 510 ml 1130 ml 960 ml Balance 510 ml 1130 ml 960 ml Exam Constitutional: alert, oriented Psych: no complaints Head: normocephalic ENMT: nl external ears & nose Neck: supple Respiratory: clear to auscultation Cardiovascular: nl pulses Gastrointestinal: non-tender, soft Musculoskeletal: nl extremities to inspection Results Result Diagram: 09/23/16 0443 09/23/16 0443 Results 24 hrs Laboratory Tests Test 09/23/16 04:43 White Blood Count 3.8 L Red Blood Count 3.60 L Hemoglobin 11.7 L Hematocrit 34.4 L Mean Corpuscular Volume 95.6 Mean Corpuscular Hemoglobin 32.5 Mean Corpuscular Hemoglobin Concent 34.0 Red Cell Distribution Width 14.0 Platelet Count 101 L Mean Platelet Volume 11.3 H Neutrophils % 39.4 Lymphocytes % 47.5 Monocytes % 8.6 Eosinophils % 3.9 Basophils % 0.3 Nucleated Red Blood Cells % 0.0 Neutrophils # 1.5 L Lymphocytes # 1.8 Monocytes # 0.3 Eosinophils # 0.2 Basophils # 0.0 Nucleated Red Blood Cells # 0.0 Sodium Level 142 Potassium Level 3.0 L Chloride Level 118 H Carbon Dioxide Level 21 Anion Gap 6 L Blood Urea Nitrogen 8 Creatinine 0.61 Glucose Level 90 Calcium Level 9.5 Medications Medications Current Medications Dextrose/Sodium Chloride (D5-1/2ns) 1,000 ml @ 70 mls/hr [id number] IV Last administered on 09/23/16 02:17; Admin Dose 70 MLS/HR; Start 09/16/16 at 12:03 Ondansetron HCl (Zofran Inj) 4 mg Q6H PRN IV NAUSEA AND/OR VOMITING; Start at 12:30 Morphine Sulfate (morphine) 2 mg Q4H PRN IV SEVERE PAIN LEVEL 7-10; Start 09/16 at 12:30 Furosemide (Lasix) 20 mg DAILY PO Last administered on 09/23/16 08:45; Admin Dose 20 MG; Start 09/17/16 at 09:00 Ofloxacin (Ocuflox) 1 drop QID BOTH EYES Last administered on 09/23/16 12:27; Admin Dose 1 DROP; Start 09/16/16 at 13:00 Fish Oil (Fish Oil) 1,000 mg DAILY PO Last administered on 09/23/16 08:42; Admin Dose 1,000 MG; Start 09/17/16 at 09:00 Memantine (Namenda) 10 mg BID PO Last administered on 09/23/16 08:42; Admin Dose 10 MG; Start 09/16/16 at 21:00 Lactulose (Enulose) 30 gm Q6 PO Last administered on 09/23/16 12:27; Admin Dose 30 GM; Start 09/17/16 at 12:30 Pantoprazole (Protonix Tab) 40 mg DAILY@06 PO Last administered on 09/23/16 05 :15; Admin Dose 40 MG; Start 09/18/16 at 06:00 RACHEL HOFF September 23, 2016 16:52
[2016-09-23] MEDS: RIFAMPIN 300 MG CAP PO SCH (18:06)
[2016-09-24] MEDS: LACTULOSE 30ML CUP PO SCH ×5 (00:16→23:58)
[2016-09-24] MEDS: PANTOPRAZOLE (EC) 40 MG TAB PO SCH (05:44)
[2016-09-24 07:10] VITALS: BP 134/71; RESP 18
[2016-09-24 07:15] LABS: POTASSIUM 3.5 mmol/L (3.5-5.1)
[2016-09-24 07:17] LABS: CREATININE 0.6 mg/dl (0.44-1.00)
[2016-09-24 07:18] LABS: CALCIUM 9.6 mg/dl (8.4-10.2)
[2016-09-24] MEDS: RIFAMPIN 300 MG CAP PO SCH (08:44)
[2016-09-24] MEDS: POTASSIUM CHLORIDE (SR) 10 MEQ TAB PO SCH (08:44)
[2016-09-24] MEDS: FUROSEMIDE 20 MG TAB PO SCH (08:44)
[2016-09-24] MEDS: OFLOXACIN 0.3% 5 ML OPH BOTH EYES SCH ×4 (08:44→20:20)
[2016-09-24] MEDS: MEMANTINE 10 MG TAB PO SCH ×2 (08:44→20:20)
[2016-09-24] MEDS: FISH OIL 1,000 MG CAP PO SCH (08:45)
[2016-09-24] MEDS ORDERED: DEXTROSE 5%-0.45% NACL 500 ML IV SCH (11:31)
[2016-09-24] MEDS: DEXTROSE 5%-0.45% NACL 500 ML IV SCH ×2 (13:30→20:45)
--- NOTE | 2016-09-24 14:51 | PN ---
Date/Time of Note Date/Time of Note DATE: 09/24/16 TIME: 14:48 Assessment/Plan VTE Prophylaxis VTE Prophylaxis Intervention: SCD's Lines/Catheters IV Catheter Type (from [facility]): Saline Lock Urinary Cath still in place: No Assessment/Plan Chief Complaint/Hosp Course Ammonia level is 62, patient is awake alert and oriented 2 follow commands. ASSESSMENT AND PLAN 1. Hepatic encephalopathy, resolving, continue patient on lactulose, monitor ammonia level. 2. Liver cirrhosis. Dr. Farias is following in gastroenterology consultation. 3. Thrombocytopenia most likely secondary to liver cirrhosis. 4. Chronic congestive heart failure. Continue diuretics. 5. Hypertension. Patient is currently normotensive. 6. Dementia. Continue Namenda. 7. History of asthma. 8. Depression. 9. History of cerebrovascular accident. 10. Hypernatremia. Continue Protonix for peptic ulcer disease prophylaxis and sequential compression devices for deep venous thrombosis prophylaxis. Further recommendations based on clinical course. Plan of care discussed with Dr. Perez. Problems: Exam/Review of Systems Vital Signs Vitals Vital Signs Date Time Temp Pulse Resp B/P Pulse Ox O2 Delivery O2 Flow Rate FiO2 09/24/16 07:10 98.2 81 18 134/71 99 Intake and Output 09/23/16 09/23/16 09/24/16 15:00 23:00 07:00 Intake Total 1350 ml 1130 ml Output Total 400 ml Balance 950 ml 1130 ml Exam Constitutional: alert, oriented Psych: no complaints Head: normocephalic ENMT: nl external ears & nose Neck: supple Respiratory: clear to auscultation Cardiovascular: nl pulses Gastrointestinal: non-tender, soft Musculoskeletal: nl extremities to inspection Results Result Diagram: 09/23/16 0443 09/24/16 0521 Results 24 hrs Laboratory Tests Test 09/24/16 05:21 09/24/16 06:00 Sodium Level 146 H Potassium Level 3.5 Chloride Level 125 H Carbon Dioxide Level 23 Anion Gap 2 L Blood Urea Nitrogen 8 Creatinine 0.60 Glucose Level 92 Calcium Level 9.6 Ammonia 62 H Medications Medications Current Medications Ondansetron HCl (Zofran Inj) 4 mg Q6H PRN IV NAUSEA AND/OR VOMITING; Start at 12:30 Morphine Sulfate (morphine) 2 mg Q4H PRN IV SEVERE PAIN LEVEL 7-10; Start 09/16 at 12:30 Furosemide (Lasix) 20 mg DAILY PO Last administered on 09/24/16 08:44; Admin Dose 20 MG; Start 09/17/16 at 09:00 Ofloxacin (Ocuflox) 1 drop QID BOTH EYES Last administered on 09/24/16 13:03; Admin Dose 1 DROP; Start 09/16/16 at 13:00 Fish Oil (Fish Oil) 1,000 mg DAILY PO Last administered on 09/24/16 08:45; Admin Dose 1,000 MG; Start 09/17/16 at 09:00 Memantine (Namenda) 10 mg BID PO Last administered on 09/24/16 08:44; Admin Dose 10 MG; Start 09/16/16 at 21:00 Lactulose (Enulose) 30 gm Q6 PO Last administered on 09/24/16 13:03; Admin Dose 30 GM; Start 09/17/16 at 12:30 Pantoprazole (Protonix Tab) 40 mg DAILY@06 PO Last administered on 09/24/16 05 :44; Admin Dose 40 MG; Start 09/18/16 at 06:00 Rifampin (Rifampin) 600 mg DAILY PO Last administered on 09/24/16 08:44; Admin Dose 600 MG; Start 09/23/16 at 17:00 Potassium Chloride 10 meq 10 meq DAILY PO Last administered on 09/24/16 08:44 ; Admin Dose 10 MEQ; Start 09/24/16 at 09:00 Dextrose/Sodium Chloride (D5-1/2ns) 500 ml @ 70 mls/hr Q7H9M IV ; Start at 13:30 RACHEL HOFF September 24, 2016 14:50
[2016-09-24 20:00] VITALS: BP 138/65; RESP 19
[2016-09-25] MEDS: DEXTROSE 5%-0.45% NACL 500 ML IV SCH ×2 (04:24→11:19)
[2016-09-25] MEDS: LACTULOSE 30ML CUP PO SCH ×2 (05:04→12:40)
[2016-09-25] MEDS: PANTOPRAZOLE (EC) 40 MG TAB PO SCH (05:04)
[2016-09-25 05:17] LABS: ADD SCAN DIFF NO
[2016-09-25 05:21] LABS: BASOPHILS % 0.2 % (0.0-2.0); EOSINOPHILS # 0.1 10^3/ul (0.0-0.5); EOSINOPHILS % 2.3 % (0.0-7.0); HEMATOCRIT 33.9 % (37.0-47.0); HEMOGLOBIN 11.8 g/dl (12.0-16.0); LYMPHOCYTES % 45.8 % (15.0-51.0); MEAN CORPUSCULAR HEMOGLOBIN 32.8 pg (29.0-33.0); MEAN CORPUSCULAR HGB CONC 34.8 g/dl (32.0-37.0); MEAN CORPUSCULAR VOLUME 94.2 fl (82.0-101.0); MEAN PLATELET VOLUME 10.7 fl (7.4-10.4); MONOCYTE # 0.4 10^3/ul (0.3-0.9); MONOCYTES % 9.3 % (0.0-11.0); NEUTROPHIL # 1.9 10^3/ul (1.6-7.5); NEUTROPHILS % 42.2 % (39.0-77.0); PLATELET COUNT 101 10^3/UL (140-415); RED CELL DISTRIBUTION WIDTH 13.8 % (11.5-14.5); WHITE BLOOD COUNT 4.4 10^3/ul (4.8-10.8)
[2016-09-25 05:48] LABS: CALCIUM 9.6 mg/dl (8.4-10.2); CREATININE 0.62 mg/dl (0.44-1.00)
[2016-09-25 07:55] VITALS: BP 165/75; RESP 18
[2016-09-25] MEDS: FISH OIL 1,000 MG CAP PO SCH (08:46)
[2016-09-25] MEDS: OFLOXACIN 0.3% 5 ML OPH BOTH EYES SCH ×3 (08:46→17:13)
[2016-09-25] MEDS: RIFAMPIN 300 MG CAP PO SCH (08:47)
[2016-09-25] MEDS: FUROSEMIDE 20 MG TAB PO SCH (08:47)
[2016-09-25] MEDS: MEMANTINE 10 MG TAB PO SCH (08:48)
[2016-09-25] MEDS: POTASSIUM CHLORIDE (SR) 10 MEQ TAB PO SCH (08:48)
[2016-09-25] MEDS ORDERED: POTASSIUM CHLORIDE (SR) 20 MEQ TAB PO STA (11:08)
== END 2016-09-25 17:25 | DRG 443 ==
LOC: E/R 04:01 → PP2 06:01
PROVIDERS: ADMIT Internal Medicine; ATTEND Internal Medicine
DX: K72.90 Hepatic failure, unspecified without coma (principal); D69.6 Thrombocytopenia, unspecified; F03.90 Unspecified dementia, unspecified severity, without behavioral disturbance, psychotic disturbance, mood disturbance, and anxiety; I11.0 Hypertensive heart disease with heart failure; I50.9 Heart failure, unspecified; Z86.73 Personal history of transient ischemic attack (TIA), and cerebral infarction without residual deficits; I10 Essential (primary) hypertension; F32.9 Major depressive disorder, single episode, unspecified; J45.909 Unspecified asthma, uncomplicated; E87.6 Hypokalemia
CPT/HCPCS: 36415; 70450; 71010; 80048; 80053; 80306; 80307; 81001; 82140; 83605; 83735; 84484; 85025; 87086; 92526; 92610; 93005; 97116; 97163; 97530; C9113; J7042

== ENCOUNTER 2016-09-25 16:45 | Inpatient (IN) | payer MEDICARE, OTHER ==
[~2016-09-25] VITALS: Ht 152.4 cm; Wt 74.9 kg
[~2016-09-25 16:45] MED LIST: AMLO2.5T78 PO; ASPI81TA3 PO; CHOL400T10 PO; DICL75TA2 PO; FER325 PO; FURO20TA3 PO; ICOS1CAP PO; LACT10SO5 PO; LISI40TA9 PO; MECL-77 PO; MEMA28CA PO; METO-448 PO; NITR100C73 PO; OFLO5DRO46 BOTH EYES; OMEP20CA16 PO; PREG50CA PO; TRAM-40 PO
[2016-09-25 18:15] VITALS: BP 109/75; PULSE 95; RESP 18
--- NOTE | 2016-09-25 19:12 | DS ---
Date/Time of Note Date/Time of Note DATE: 09/25/16 TIME: 19:12 Discharge Summary Admission/Discharge Info Admit Date/Time Sep 25, 2016 at 17:59 Discharge Date/Time Patient Condition: Stable Home Meds Reported Medications Furosemide* (Furosemide*) 20 Mg Tablet, 20 MG PO DAILY, #60 TAB 09/16/16 Lisinopril* (Lisinopril*) 40 Mg Tablet, 40 MG PO DAILY, #30 TAB 09/16/16 Pregabalin* (Lyrica*) 50 Mg Capsule, 50 MG PO BID, CAP 09/16/16 Aspirin (Aspirin) 81 Mg Chew, 81 MG PO DAILY, TAB.CHEW 09/16/16 Metoprolol Tartrate* (Lopressor*) 25 Mg Tab, 25 MG PO BID, #60 TAB 09/16/16 Memantine* (Namenda* XR) 28 Mg Cap.spr.24, 28 MG PO DAILY, #30 TAB 09/16/16 Amlodipine Besylate* (Amlodipine Besylate*) 2.5 Mg Tablet, 5 MG PO DAILY, #30 TAB 09/16/16 Tramadol Hcl* (Ultram*) 50 Mg Tablet, 50 MG PO Q8 for PAIN, TAB 09/16/16 Meclizine Hcl* (Meclizine Hcl*) 25 Mg Tablet, 25 MG PO Q8H Y for DIZZINESS, TAB 09/16/16 Omeprazole* (Omeprazole*) 20 Mg Capsule.dr, 20 MG PO DAILY, #30 CAP 09/16/16 Lactulose* (Lactulose*) 10 Gm/15 Ml Solution, 10 GM PO Q8, ML 09/16/16 Cholecalciferol* (Vitamin D*) 400 Unit Tablet, 400 UNIT PO DAILY, TAB 09/16/16 Diclofenac Sodium* (Diclofenac Sodium*) 75 Mg Tablet.dr, 75 MG PO BID, #60 TAB 09/16/16 Ofloxacin* (Ocuflox*) 0.3%-5 Ml Ophth Drops, 1 DROP BOTH EYES QID, BOTTLE 09/16/16 Nitrofurantoin Macrocrystal* (Nitrofurantoin Macrocrystal*) 100 Mg Capsule, 100 MG PO HS, CAP 09/16/16 Ferrous Sulfate* (Ferrous Sulfate*) 325 Mg Tabec, 325 MG PO DAILY, TAB 09/16/16 Icosapent Ethyl (VASCEPA) 1 Gm Capsule, 1 GM PO DAILY, CAP 09/16/16 Primary Care Provider DO SANFORD Hanson RANBIR Sep 25, 2016 19:12
[2016-09-25] MEDS ORDERED: ONDANSETRON 4 MG TAB PO PRN (21:30)
[2016-09-25] MEDS: NACL 0.9% 3 ML SYG IV SCH (22:00)
[2016-09-25] MEDS: RIFAXIMIN 550 MG TAB PO SCH (22:29)
[2016-09-25] MEDS: MEMANTINE 10 MG TAB PO SCH (22:29)
[2016-09-25] MEDS: OFLOXACIN 0.3% 5 ML OPH BOTH EYES SCH (22:29)
[2016-09-25 23:08] LABS: ADD UMIC YES; URINE BILIRUBIN (Dip) NEGATIVE (NEGATIVE); URINE BLOOD (Dip) NEGATIVE (NEGATIVE); URINE COLOR AMBER (YELLOW); URINE KETONES (Dip) TRACE (NEGATIVE); URINE LEUKOCYTE ESTERASE (Dip) NEGATIVE (NEGATIVE); URINE NITRITE (Dip) POSITIVE (NEGATIVE); URINE TOTAL PROTEIN (Dip) NEGATIVE (NEGATIVE); URINE UROBILINOGEN (Dip) 0.2 E.U./dL (0.1-1.0)
[2016-09-25 23:19] LABS: BACTERIA,URINE FEW; SQUAMOUS EPITHELIAL CELL,UR MANY; URINE RBCS 0-2 /HPF (0)
[2016-09-26] MEDS: LACTULOSE 30ML CUP PO SCH ×4 (00:17→17:09)
[2016-09-26 01:08] VITALS: BP 118/68; RESP 16
[2016-09-26] MEDS ORDERED: ACETAMINOPHEN 325 MG TAB PO PRN (03:00)
[2016-09-26] MEDS ORDERED: BISACODYL 10 MG SUPP PR PRN (03:00)
[2016-09-26] MEDS: NACL 0.9% 3 ML SYG IV SCH (05:42)
[2016-09-26 06:52] LABS: ADD SCAN DIFF NO
[2016-09-26 06:57] LABS: BASOPHILS % 0.2 % (0.0-2.0); EOSINOPHILS # 0.1 10^3/ul (0.0-0.5); EOSINOPHILS % 2.3 % (0.0-7.0); HEMATOCRIT 38.1 % (37.0-47.0); HEMOGLOBIN 12.6 g/dl (12.0-16.0); LYMPHOCYTES # 2.1 10^3/ul (0.8-2.9); MEAN CORPUSCULAR HEMOGLOBIN 31.5 pg (29.0-33.0); MEAN CORPUSCULAR HGB CONC 33.1 g/dl (32.0-37.0); MEAN CORPUSCULAR VOLUME 95.3 fl (82.0-101.0); MEAN PLATELET VOLUME 11.1 fl (7.4-10.4); MONOCYTE # 0.4 10^3/ul (0.3-0.9); NEUTROPHIL # 1.7 10^3/ul (1.6-7.5); NEUTROPHILS % 39.3 % (39.0-77.0); PLATELET COUNT 108 10^3/UL (140-415); RED CELL DISTRIBUTION WIDTH 14.3 % (11.5-14.5); WHITE BLOOD COUNT 4.3 10^3/ul (4.8-10.8)
[2016-09-26 07:20] LABS: ALBUMIN 3.4 g/dl (3.3-4.9); ALBUMIN/GLOBULIN RATIO 0.82; BILIRUBIN,DIRECT 0.9 mg/dl (0.00-0.20); BILIRUBIN,INDIRECT 1.6 mg/dl (0-1.1); BILIRUBIN,TOTAL 2.5 mg/dl (0.2-1.3); CALCIUM 10.2 mg/dl (8.4-10.2); CREATININE 0.61 mg/dl (0.44-1.00); POTASSIUM 3.3 mmol/L (3.5-5.1); TOTAL PROTEIN 7.5 g/dl (6.1-8.1)
[2016-09-26 07:52] VITALS: BP 120/63; RESP 18
[2016-09-26] MEDS: FISH OIL 1,000 MG CAP PO SCH (09:27)
[2016-09-26] MEDS: RIFAXIMIN 550 MG TAB PO SCH ×2 (09:27→21:23)
[2016-09-26] MEDS: DOCUSATE SODIUM 100 MG CAP PO SCH ×2 (09:27→21:23)
[2016-09-26] MEDS: FUROSEMIDE 20 MG TAB PO SCH (09:27)
[2016-09-26] MEDS: SPIRONOLACTONE 25 MG TAB PO SCH (09:27)
[2016-09-26] MEDS: MEMANTINE 10 MG TAB PO SCH ×2 (09:27→21:23)
[2016-09-26] MEDS: OFLOXACIN 0.3% 5 ML OPH BOTH EYES SCH ×4 (09:27→21:23)
--- NOTE | 2016-09-26 11:25 | CONS ---
DATE OF ADMISSION: 09/25/2016 DATE OF CONSULTATION: 09/26/2016 TYPE OF CONSULTATION: Rehabilitation Post-Admission Physician Evaluation REHABILITATION IMPAIRMENT CATEGORY: Hepatic encephalopathy. ACTIVE COMORBIDITIES: 1. Psoriasis. 2. Hypertension. 3. Congestive heart failure. 4. Thrombocytopenia. 5. Asthma. 6. Hypernatremia. 7. History of cerebrovascular accident with good functional recovery. 8. Depression. 9. Dysphagia, on mechanical soft diet. 10. Impairments in self-care, mobility and cognition. HISTORY OF PRESENT ILLNESS: The patient is a 76-year-old female with a history of multiple medical comorbidities, who was admitted with worsening mental status. The patient had a head CT which was negative for acute bleed. The patient was noted to have hepatic encephalopathy. The patient was al so noted to have CHF. The patient has now been cleared to transfer to the rehabilitation unit for c omprehensive interdisciplinary rehab care. FUNCTIONAL HISTORY: Prior to recent events, she was independent in self-care tasks and mobility. C urrently, she requires maximal assist to moderate assist for self-care and mobility tasks. I have reviewed the preadmission screen and the patient's current functional status is consistent wi th the preadmission screen. SOCIAL HISTORY: The patient lives at home with family and hopes to return there upon discharge. PAST MEDICAL HISTORY: 1. History of liver cirrhosis. 2. Hypertension. 3. Cataracts. 4. CHF. 5. Depression. 6. Asthma. 7. History of CVA. 8. History of abdominal tumor removal. CURRENT MEDICATIONS: 1. Amlodipine. 2. Aspirin. 3. Vitamin D. 4. Ferrous sulfate. 5. Lasix. 6. Lactulose. 7. Lisinopril. 8. Meclizine. 9. Metoprolol 10. Nitrofurantoin. 11. Lyrica. 12. Namenda. ALLERGIES: THE PATIENT WITH NO KNOWN DRUG ALLERGIES. PHYSICAL EXAMINATION: VITAL SIGNS: The patient is currently afebrile with stable vital signs. HEENT: Extraocular motions intact. Oropharynx clear. NECK: Supple. LUNGS: Clear anteriorly. CARDIAC: S1, S2. ABDOMEN: Soft, nontender, positive bowel sounds. NEUROLOGIC: She is awake and alert and oriented to person and hospital. She will follow simple 1-s tep commands. She demonstrates antigravity strength in bilateral upper extremity and lower extremit y. She does have impaired dynamic balance. PLAN: The patient has been admitted for comprehensive interdisciplinary acute rehab and is anticipa gabriel to tolerate 3 hours of daily therapy in divided doses for at least 5/7 days a week. Treatment p melina will include: 1. Physical therapy to focus on bed mobility, transfers, and household ambulation with the goal of having the patient reach standby assist level. 2. Occupational therapy to focus on hygiene, grooming, dressing, bathing, and toileting activities with the goal of having patient reach standby assist level. 3. Rehabilitation nursing for carryover of therapeutic interventions, the goal of continent of eduar l and bladder, and the goal of patient and family education with regard to the aforementioned issues . 4. Speech therapy for a full cognitive assessment and retraining in addition to dysphagia managemen t with the goal of having the patient return to baseline cognition and meet nutritional needs by mary th. REHABILITATION BARRIER: Cognition. INTERVENTION FOR BARRIER: Speech therapy. ESTIMATED LENGTH OF STAY: 10 days. DISPOSITION GOAL: Home. I acknowledge that I performed a full physical examination on this patient within 24 hours of admiss ion to the rehabilitation unit. I believe the patient is a good candidate for comprehensive interdi sciplinary rehab care and is anticipated to make reasonable goals in a reasonable period of time as outlined above. Dictated By: LON HAQ/REUBEN Conf#: [id number] DID#: [id number]
[2016-09-26] MEDS ORDERED: POTASSIUM CHLORIDE (SR) 10 MEQ TAB PO ONE (17:00)
--- NOTE | 2016-09-26 18:32 | HP ---
DATE OF ADMISSION: 09/25/2016 HISTORY OF PRESENT ILLNESS: The patient is a 76-year-old female with liver cirrhosis, hype rtension, dementia, CHF, depression, asthma, history of CVA in 2016. The patient was diagnosed with hepatic encephalopathy, was given lactulose and rifaximin with improvement. Patient's condition im proved; however, patient still has some impairments in self-care, mobility and conditioning and rebel ent was admitted for further evaluation and management at [facility] [place]. Patient kevin es any fever or chills. Denies any nausea, vomiting, denies any extremity swelling. Denies any cou gh. PAST MEDICAL HISTORY: Per HPI. PAST SURGICAL HISTORY: Patient is status post abdominal tumor removal in 2016. Details are not ulisses ilable. FAMILY HISTORY: Noncontributory. SOCIAL HISTORY: The patient lives at home with her daughter. The patient denies any tobacco use, d enies alcohol use, denies illicit drug use. ALLERGIES: NO KNOWN ALLERGIES. HOME MEDICATIONS: Include: 1. Lasix. 2. Aldactone. 3. Colace. 4. Tylenol. 5. Dulcolax. 6. Lactulose. 7. Namenda. 8. Rifaximin. 9. Zofran p.r.n. REVIEW OF SYSTEMS: A 12-point review of systems is negative unless what mentioned in the HPI. PHYSICAL ASSESSMENT: GENERAL: Well-developed, well-nourished female currently in no acute distress. VITAL SIGNS: Temperature is 98.2, pulse is 84, blood pressure 120/62, respiratory rate 18, oxygen s aturation 97% on room air. HEENT: Head is atraumatic, normocephalic. Pupils equal, round, reactive to light and accommodation . Oral mucosa is pink and moist. NECK: Supple, no cervical lymphadenopathy, no thyromegaly. CHEST: Lungs clear bilaterally with no rhonchi, wheezes, or rales noted. CARDIOVASCULAR: Normal S1 and S2. No murmurs, gallops, clicks, rubs noted. ABDOMEN: Round, soft, nondistended, nontender. Bowel sounds present. There is no guarding, no chloé ound tenderness. EXTREMITIES: No edema. NEUROLOGIC: Patient is awake, alert and oriented x3. ASSESSMENT AND PLAN: 1. Resolving hepatic encephalopathy with deficit in self-care. 2. Liver cirrhosis. 3. Chronic congestive heart failure. 4. Hypertension. 5. Dementia. 6. History of asthma. 7. Depression. 8. History of cerebrovascular accident. Continue Lasix and Aldactone for liver cirrhosis. Continue her lactulose and rifaximin. Monitor el ectrolytes. Continue physical, speech and occupational therapy. Continue sequential compression de vice for deep venous thrombosis prophylaxis. Further recommendations based on clinical course. Wilberto n of care discussed with Dr. Perez. Dictated By: RACHEL HOFF DECONTAMINATION WORKER for NICKI PEREZ MD SR/NTS Conf#: [id number] DID#: [id number]
[2016-09-26 20:00] VITALS: BP 140/75; PULSE 87; RESP 18
[2016-09-27] MEDS: LACTULOSE 30ML CUP PO SCH ×5 (00:08→23:21)
[2016-09-27 07:30] VITALS: BP 136/69; RESP 18
[2016-09-27 07:57] LABS: CALCIUM 10.3 mg/dl (8.4-10.2); CREATININE 0.65 mg/dl (0.44-1.00); POTASSIUM 3.7 mmol/L (3.5-5.1)
[2016-09-27] MEDS: RIFAXIMIN 550 MG TAB PO SCH ×2 (08:34→22:19)
[2016-09-27] MEDS: SPIRONOLACTONE 25 MG TAB PO SCH (08:34)
[2016-09-27] MEDS: OFLOXACIN 0.3% 5 ML OPH BOTH EYES SCH ×4 (08:35→22:19)
[2016-09-27] MEDS: FUROSEMIDE 20 MG TAB PO SCH (08:35)
[2016-09-27] MEDS: FISH OIL 1,000 MG CAP PO SCH (08:35)
[2016-09-27] MEDS: MEMANTINE 10 MG TAB PO SCH ×2 (08:35→22:19)
[2016-09-27] MEDS: DOCUSATE SODIUM 100 MG CAP PO SCH ×2 (08:35→22:20)
--- NOTE | 2016-09-27 17:15 | PN ---
Date/Time of Note Date/Time of Note DATE: 09/27/16 TIME: 17:14 Assessment/Plan VTE Prophylaxis VTE Prophylaxis Intervention: other Lines/Catheters Urinary Cath still in place: No Assessment/Plan Assessment/Plan 1. Resolving hepatic encephalopathy with deficit in self-care- improving - Continue her lactulose and rifaximin. - am NH3 lab 2. Liver cirrhosis. - Lasix and Aldactone for liver cirrhosis. 3. Chronic congestive heart failure. 4. Hypertension. 5. Dementia. 6. History of asthma. 7. Depression. 8. History of cerebrovascular accident. Continue physical, speech and occupational therapy. Continue sequential compression device for deep venous thrombosis prophylaxis. Further recommendations based on clinical course. Plan of care discussed with Dr. Perez. Subjective 24 Hr Interval Summary Free Text/Dictation alert, sitting up in wheel chair, follows simple commands, tolerates PT, family at bed side- all Qs answered Constitutional: improved Respiratory: no complaints Cardiovascular: no complaints Gastrointestinal: no complaints Genitourinary: no complaints Exam/Review of Systems Vital Signs Vitals Vital Signs Date Time Temp Pulse Resp B/P Pulse Ox O2 Delivery O2 Flow Rate FiO2 09/27/16 07:30 98.4 87 18 136/69 96 09/26/16 20:00 Room Air Intake and Output 09/26/16 09/26/16 09/27/16 14:59 22:59 06:59 Intake Total 860 ml 360 ml Output Total 400 ml 250 ml Balance 460 ml 110 ml Exam Constitutional: alert, well developed Psych: nl mood/affect Eyes: nl sclera Respiratory: clear to auscultation, normal air movement Cardiovascular: nl pulses, regular rate and rhythm Gastrointestinal: non-tender, soft Extremities: normal pulses Neurological: nl speech, other (oriented to name, person) Skin: nl turgor Results Result Diagram: 09/26/16 0625 09/27/16 0600 Results 24 hrs Laboratory Tests Test 09/27/16 06:00 Sodium Level 146 H Potassium Level 3.7 Chloride Level 119 H Carbon Dioxide Level 20 L Anion Gap 11 Blood Urea Nitrogen 10 Creatinine 0.65 Glucose Level 84 Calcium Level 10.3 H Medications Medications Current Medications Fish Oil (Fish Oil) 1,000 mg DAILY PO Last administered on 09/27/16t 08:35; Admin Dose 1,000 MG; Start 09/26/16 at 09:00 Furosemide (Lasix) 20 mg DAILY PO Last administered on 09/27/16 08:35; Admin Dose 20 MG; Start 09/26/16 at 09:00 Lactulose (Enulose) 30 gm Q6 PO Last administered on 09/27/16 17:13; Admin Dose 30 GM; Start 09/26/16 at 00:00 Memantine (Namenda) 10 mg BID PO Last administered on 09/27/16 08:35; Admin Dose 10 MG; Start 09/25/16 at 22:30 Ondansetron HCl (Zofran Tab) 4 mg Q6H PRN PO NAUSEA AND/OR VOMITING; Start 09/25 at 21:30 Spironolactone (Aldactone) 100 mg DAILY PO Last administered on 09/27/16 08:34 ; Admin Dose 100 MG; Start 09/26/16 at 09:00 Rifaximin (Xifaxan) 550 mg BID PO Last administered on 09/27/16 08:34; Admin Dose 550 MG; Start 09/25/16 at 22:30 Ofloxacin (Ocuflox) 1 drop QID BOTH EYES Last administered on 09/27/16 17:13; Admin Dose 1 DROP; Start 09/25/16 at 22:30; Stop 10/02/16 at 17:01 Docusate Sodium (Colace) 100 mg BID PO Last administered on 09/27/16 08:35; Admin Dose 100 MG; Start 09/26/16 at 09:00 Acetaminophen (Tylenol Tab) 650 mg Q4H PRN PO PAIN; Start 09/26/16 at 03:00 Bisacodyl (Dulcolax Supp) 10 mg DAILY PRN [place] CONSTIPATION; Start 09/26/16 at 03: 00 SALLY CHRISTINA Sep 27, 2016 17:15
[2016-09-27 20:18] VITALS: BP 120/65; RESP 20
[2016-09-28] MEDS: LACTULOSE 30ML CUP PO SCH ×4 (05:14→23:52)
[2016-09-28 07:59] LABS: POTASSIUM 3.9 mmol/L (3.5-5.1)
[2016-09-28 08:00] LABS: CALCIUM 10.5 mg/dl (8.4-10.2); CREATININE 0.67 mg/dl (0.44-1.00)
[2016-09-28] MEDS: OFLOXACIN 0.3% 5 ML OPH BOTH EYES SCH ×4 (09:21→20:49)
[2016-09-28] MEDS: FUROSEMIDE 20 MG TAB PO SCH (09:22)
[2016-09-28] MEDS: FISH OIL 1,000 MG CAP PO SCH (09:22)
[2016-09-28] MEDS: DOCUSATE SODIUM 100 MG CAP PO SCH ×2 (09:22→20:49)
[2016-09-28] MEDS: SPIRONOLACTONE 25 MG TAB PO SCH (09:22)
[2016-09-28] MEDS: RIFAXIMIN 550 MG TAB PO SCH ×2 (09:23→20:49)
[2016-09-28] MEDS: MEMANTINE 10 MG TAB PO SCH ×2 (09:23→20:49)
--- NOTE | 2016-09-28 10:52 | CONS ---
Date/Time of Note Date/Time of Note DATE: 09/28/16 TIME: 10:51 Consult Date/Type/Reason Admit Date/Time Sep 25, 2016 at 17:59 Initial Consult Date Subjective Comfortable Objective pulm-cta abd-soft min assist Vital Signs Date Time Temp Pulse Resp B/P Pulse Ox O2 Delivery O2 Flow Rate FiO2 09/27/16 20:18 98.2 89 20 120/65 97 09/26/16 20:00 Room Air Intake and Output 09/27/16 09/27/16 09/28/16 15:00 23:00 07:00 Intake Total 420 ml 240 ml Output Total 200 ml Balance 420 ml 40 ml Results/Medications Result Diagram: 09/26/16 0625 09/28/16 0629 Results 24 hrs Laboratory Tests Test 09/28/16 06:29 Sodium Level 143 Potassium Level 3.9 Chloride Level 115 H Carbon Dioxide Level 22 Anion Gap 10 Blood Urea Nitrogen 9 Creatinine 0.67 Glucose Level 90 Calcium Level 10.5 H Ammonia 51 H Medications Current Medications Fish Oil (Fish Oil) 1,000 mg DAILY PO Last administered on 09/28/16 09:22; Admin Dose 1,000 MG; Start 09/26/16 at 09:00 Furosemide (Lasix) 20 mg DAILY PO Last administered on 09/28/16 09:22; Admin Dose 20 MG; Start 09/26/16 at 09:00 Lactulose (Enulose) 30 gm Q6 PO Last administered on 09/27/16 17:13; Admin Dose 30 GM; Start 09/26/16 at 00:00 Memantine (Namenda) 10 mg BID PO Last administered on 09/28/16 09:23; Admin Dose 10 MG; Start 09/25/16 at 22:30 Ondansetron HCl (Zofran Tab) 4 mg Q6H PRN PO NAUSEA AND/OR VOMITING Last administered on 09/27/16 22:19; Admin Dose 4 MG; Start 09/25/16 at 21:30 Spironolactone (Aldactone) 100 mg DAILY PO Last administered on 09/28/16 09:22 ; Admin Dose 100 MG; Start 09/26/16 at 09:00 Rifaximin (Xifaxan) 550 mg BID PO Last administered on 09/28/16 09:23; Admin Dose 550 MG; Start 09/25/16 at 22:30 Ofloxacin (Ocuflox) 1 drop QID BOTH EYES Last administered on 09/28/16 09:21; Admin Dose 1 DROP; Start 09/25/16 at 22:30; Stop 10/02/16 at 17:01 Docusate Sodium (Colace) 100 mg BID PO Last administered on 09/28/16 09:22; Admin Dose 100 MG; Start 09/26/16 at 09:00 Acetaminophen (Tylenol Tab) 650 mg Q4H PRN PO PAIN; Start 09/26/16 at 03:00 Bisacodyl (Dulcolax Supp) 10 mg DAILY PRN [place] CONSTIPATION; Start 09/26/16 at 03: 00 Assessment/Plan Additional Assessment/Plan Rehab- Hepatic encephalopathy. Progressing with rehab program Psoriasis. Hypertension. Congestive heart failure. Thrombocytopenia. Asthma. Hypernatremia. History of cerebrovascular accident with good functional recovery. Depression. Dysphagia, on mechanical soft diet. LON JO MD Sep 28, 2016 10:52
--- NOTE | 2016-09-28 17:18 | PN ---
Date/Time of Note Date/Time of Note DATE: 09/28/16 TIME: 17:17 Assessment/Plan Lines/Catheters Urinary Cath still in place: No Assessment/Plan Assessment/Plan 1. Resolving hepatic encephalopathy with deficit in self-care- improving - Continue her lactulose and rifaximin. - am NH3 lab 2. Liver cirrhosis. - Lasix and Aldactone for liver cirrhosis. 3. Chronic congestive heart failure. 4. Hypertension. 5. Dementia. 6. History of asthma. 7. Depression. 8. History of cerebrovascular accident. Continue physical, speech and occupational therapy. Continue sequential compression device for deep venous thrombosis prophylaxis. Further recommendations based on clinical course. Plan of care discussed with Dr. Perez. Subjective 24 Hr Interval Summary Respiratory: no complaints Cardiovascular: no complaints Gastrointestinal: no complaints Genitourinary: no complaints Exam/Review of Systems Vital Signs Vitals Vital Signs Date Time Temp Pulse Resp B/P Pulse Ox O2 Delivery O2 Flow Rate FiO2 09/27/16 20:18 98.2 89 20 120/65 97 09/26/16 20:00 Room Air Intake and Output 09/27/16 09/27/16 09/28/16 15:00 23:00 07:00 Intake Total 420 ml 240 ml Output Total 200 ml Balance 420 ml 40 ml Exam Constitutional: alert, well developed Respiratory: clear to auscultation, normal air movement Cardiovascular: nl pulses, regular rate and rhythm Gastrointestinal: non-tender, soft Musculoskeletal: nl extremities to inspection Extremities: normal pulses Neurological: nl speech Skin: nl turgor Lymph: nontender Results Result Diagram: 09/26/16 0625 09/28/16 0629 Results 24 hrs Laboratory Tests Test 09/28/16 06:29 Sodium Level 143 Potassium Level 3.9 Chloride Level 115 H Carbon Dioxide Level 22 Anion Gap 10 Blood Urea Nitrogen 9 Creatinine 0.67 Glucose Level 90 Calcium Level 10.5 H Ammonia 51 H Medications Medications Current Medications Fish Oil (Fish Oil) 1,000 mg DAILY PO Last administered on 09/28/16 09:22; Admin Dose 1,000 MG; Start 09/26/16 at 09:00 Furosemide (Lasix) 20 mg DAILY PO Last administered on 09/28/16 09:22; Admin Dose 20 MG; Start 09/26/16 at 09:00 Lactulose (Enulose) 30 gm Q6 PO Last administered on 09/27/16 17:13; Admin Dose 30 GM; Start 09/26/16 at 00:00 Memantine (Namenda) 10 mg BID PO Last administered on 09/28/16 09:23; Admin Dose 10 MG; Start 09/25/16 at 22:30 Ondansetron HCl (Zofran Tab) 4 mg Q6H PRN PO NAUSEA AND/OR VOMITING Last administered on 09/27/16 22:19; Admin Dose 4 MG; Start 09/25/16 at 21:30 Spironolactone (Aldactone) 100 mg DAILY PO Last administered on 09/28/16 09:22 ; Admin Dose 100 MG; Start 09/26/16 at 09:00 Rifaximin (Xifaxan) 550 mg BID PO Last administered on 09/28/16 09:23; Admin Dose 550 MG; Start 09/25/16 at 22:30 Ofloxacin (Ocuflox) 1 drop QID BOTH EYES Last administered on 09/28/16 17:07; Admin Dose 1 DROP; Start 09/25/16 at 22:30; Stop 10/02/16 at 17:01 Docusate Sodium (Colace) 100 mg BID PO Last administered on 09/28/16 09:22; Admin Dose 100 MG; Start 09/26/16 at 09:00 Acetaminophen (Tylenol Tab) 650 mg Q4H PRN PO PAIN; Start 09/26/16 at 03:00 Bisacodyl (Dulcolax Supp) 10 mg DAILY PRN [place] CONSTIPATION; Start 09/26/16 at 03: 00 SALLY CHRISTINA Sep 28, 2016 17:18
[2016-09-28 20:10] VITALS: BP 122/68; PULSE 91; RESP 20
[2016-09-29] MEDS: LACTULOSE 30ML CUP PO SCH ×4 (05:32→23:33)
[2016-09-29 07:30] VITALS: BP 110/77; RESP 18
[2016-09-29] MEDS: DOCUSATE SODIUM 100 MG CAP PO SCH ×2 (09:59→20:56)
[2016-09-29] MEDS: MEMANTINE 10 MG TAB PO SCH ×2 (09:59→20:56)
[2016-09-29] MEDS: SPIRONOLACTONE 25 MG TAB PO SCH (09:59)
[2016-09-29] MEDS: OFLOXACIN 0.3% 5 ML OPH BOTH EYES SCH ×4 (09:59→20:56)
[2016-09-29] MEDS: RIFAXIMIN 550 MG TAB PO SCH ×2 (10:00→20:56)
[2016-09-29] MEDS: FUROSEMIDE 20 MG TAB PO SCH (10:00)
[2016-09-29] MEDS: FISH OIL 1,000 MG CAP PO SCH (10:00)
--- NOTE | 2016-09-29 12:06 | CONS ---
Date/Time of Note Date/Time of Note DATE: 09/29/16 TIME: 12:06 Consult Date/Type/Reason Admit Date/Time Sep 25, 2016 at 17:59 Objective Vital Signs Date Time Temp Pulse Resp B/P Pulse Ox O2 Delivery O2 Flow Rate FiO2 09/29/16 07:30 97.9 79 18 110/77 95 09/28/16 20:10 Room Air Intake and Output 09/28/16 09/28/16 09/29/16 15:00 23:00 07:00 Intake Total 360 ml Output Total 2 ml Balance 360 ml -2 ml INTERDISCIPLINARY TEAM CONFERENCE BOWEL- Cont BLADDER-Cont SKIN- intact OT- DRESSING-min BATHING-min TOILETING-min PT- BED MOBILITY-min TRANSFERS-cga AMBULATION-cga 150 feet W.C. MOBILITY SPEECH- COGNITION-min DYPHAGIA-improving A/P- Interdisciplinary team conference held today. Please see interdisciplinary sheet. Working toward d.c. on 10/03 with post discharge follow up of physical therapy, occupational therapy. Results/Medications Result Diagram: 09/26/16 0625 09/28/16 0629 Results 24 hrs Laboratory Tests Test 09/29/16 06:05 Ammonia 34 H Medications Current Medications Fish Oil (Fish Oil) 1,000 mg DAILY PO Last administered on 09/29/16 10:00; Admin Dose 1,000 MG; Start 09/26/16 at 09:00 Furosemide (Lasix) 20 mg DAILY PO Last administered on 09/29/16 10:00; Admin Dose 20 MG; Start 09/26/16 at 09:00 Lactulose (Enulose) 30 gm Q6 PO Last administered on 09/27/16 17:13; Admin Dose 30 GM; Start 09/26/16 at 00:00 Memantine (Namenda) 10 mg BID PO Last administered on 09/29/16 09:59; Admin Dose 10 MG; Start 09/25/16 at 22:30 Ondansetron HCl (Zofran Tab) 4 mg Q6H PRN PO NAUSEA AND/OR VOMITING Last administered on 09/27/16 22:19; Admin Dose 4 MG; Start 09/25/16 at 21:30 Spironolactone (Aldactone) 100 mg DAILY PO Last administered on 09/29/16 09:59 ; Admin Dose 100 MG; Start 09/26/16 at 09:00 Rifaximin (Xifaxan) 550 mg BID PO Last administered on 09/29/16 10:00; Admin Dose 550 MG; Start 09/25/16 at 22:30 Ofloxacin (Ocuflox) 1 drop QID BOTH EYES Last administered on 09/29/16 09:59; Admin Dose 1 DROP; Start 09/25/16 at 22:30; Stop 10/02/16 at 17:01 Docusate Sodium (Colace) 100 mg BID PO Last administered on 09/29/16 09:59; Admin Dose 100 MG; Start 09/26/16 at 09:00 Acetaminophen (Tylenol Tab) 650 mg Q4H PRN PO PAIN; Start 09/26/16 at 03:00 Bisacodyl (Dulcolax Supp) 10 mg DAILY PRN [place] CONSTIPATION; Start 09/26/16 at 03: 00 LON JO MD Sep 29, 2016 12:06
--- NOTE | 2016-09-29 12:50 | PN ---
Date/Time of Note Date/Time of Note DATE: 09/29/16 TIME: 12:48 Assessment/Plan VTE Prophylaxis VTE Prophylaxis Intervention: SCD's Lines/Catheters Urinary Cath still in place: No Assessment/Plan Chief Complaint/Hosp Course Patient sitting in a wheelchair eating lunch, continues to exercise with physical therapy. ASSESSMENT AND PLAN: - Resolving hepatic encephalopathy with deficit in self-care. Continue her lactulose and rifaximin. - Liver cirrhosis. Continue Lasix and Aldactone for liver cirrhosis. - Chronic congestive heart failure. - Dementia. Continue Namenda. - History of asthma. - Depression. - History of cerebrovascular accident. Further recommendations based on clinical course. Plan of care discussed with Dr. Perez. Problems: Exam/Review of Systems Vital Signs Vitals Vital Signs Date Time Temp Pulse Resp B/P Pulse Ox O2 Delivery O2 Flow Rate FiO2 09/29/16 07:30 97.9 79 18 110/77 95 09/28/16 20:10 Room Air Intake and Output 09/28/16 09/28/16 09/29/16 15:00 23:00 07:00 Intake Total 360 ml Output Total 2 ml Balance 360 ml -2 ml Exam Constitutional: alert Psych: no complaints Head: normocephalic Neck: non-tender, supple Respiratory: clear to auscultation Cardiovascular: nl pulses Gastrointestinal: non-tender, soft Extremities: normal pulses Results Result Diagram: 09/26/16 0625 09/28/16 0629 Results 24 hrs Laboratory Tests Test 09/29/16 06:05 Ammonia 34 H Medications Medications Current Medications Fish Oil (Fish Oil) 1,000 mg DAILY PO Last administered on 09/29/16 10:00; Admin Dose 1,000 MG; Start 09/26/16 at 09:00 Furosemide (Lasix) 20 mg DAILY PO Last administered on 09/29/16 10:00; Admin Dose 20 MG; Start 09/26/16 at 09:00 Lactulose (Enulose) 30 gm Q6 PO Last administered on 09/27/16 17:13; Admin Dose 30 GM; Start 09/26/16 at 00:00 Memantine (Namenda) 10 mg BID PO Last administered on 09/29/16 09:59; Admin Dose 10 MG; Start 09/25/16 at 22:30 Ondansetron HCl (Zofran Tab) 4 mg Q6H PRN PO NAUSEA AND/OR VOMITING Last administered on 09/27/16 22:19; Admin Dose 4 MG; Start 09/25/16 at 21:30 Spironolactone (Aldactone) 100 mg DAILY PO Last administered on 09/29/16 09:59 ; Admin Dose 100 MG; Start 09/26/16 at 09:00 Rifaximin (Xifaxan) 550 mg BID PO Last administered on 09/29/16 10:00; Admin Dose 550 MG; Start 09/25/16 at 22:30 Ofloxacin (Ocuflox) 1 drop QID BOTH EYES Last administered on 09/29/16 09:59; Admin Dose 1 DROP; Start 09/25/16 at 22:30; Stop 10/02/16 at 17:01 Docusate Sodium (Colace) 100 mg BID PO Last administered on 09/29/16 09:59; Admin Dose 100 MG; Start 09/26/16 at 09:00 Acetaminophen (Tylenol Tab) 650 mg Q4H PRN PO PAIN; Start 09/26/16 at 03:00 Bisacodyl (Dulcolax Supp) 10 mg DAILY PRN [place] CONSTIPATION; Start 09/26/16 at 03: 00 RACHEL HOFF Sep 29, 2016 12:50
[2016-09-29 20:09] VITALS: BP 115/62; RESP 18
[2016-09-30] MEDS: LACTULOSE 30ML CUP PO SCH ×3 (05:49→17:53)
[2016-09-30 08:00] VITALS: BP 113/65; PULSE 87; RESP 18
[2016-09-30] MEDS: RIFAXIMIN 550 MG TAB PO SCH ×2 (09:12→20:15)
[2016-09-30] MEDS: SPIRONOLACTONE 25 MG TAB PO SCH (09:12)
[2016-09-30] MEDS: OFLOXACIN 0.3% 5 ML OPH BOTH EYES SCH ×4 (09:12→20:15)
[2016-09-30] MEDS: MEMANTINE 10 MG TAB PO SCH ×2 (09:12→20:15)
[2016-09-30] MEDS: DOCUSATE SODIUM 100 MG CAP PO SCH ×2 (09:12→20:15)
[2016-09-30] MEDS: FUROSEMIDE 20 MG TAB PO SCH (09:13)
[2016-09-30] MEDS: FISH OIL 1,000 MG CAP PO SCH (09:13)
--- NOTE | 2016-09-30 12:29 | CONS ---
Date/Time of Note Date/Time of Note DATE: 09/30/16 TIME: 12:29 Consult Date/Type/Reason Admit Date/Time Sep 25, 2016 at 17:59 Subjective doing well Objective pulm-cta sba ambulation Vital Signs Date Time Temp Pulse Resp B/P Pulse Ox O2 Delivery O2 Flow Rate FiO2 09/29/16 20:09 98.5 90 18 115/62 98 09/28/16 20:10 Room Air Intake and Output 09/29/16 09/29/16 09/30/16 15:00 23:00 07:00 Intake Total 420 ml Balance 420 ml Results/Medications Result Diagram: 09/26/16 0625 09/28/16 0629 Medications Current Medications Fish Oil (Fish Oil) 1,000 mg DAILY PO Last administered on 09/30/16 09:13; Admin Dose 1,000 MG; Start 09/26/16 at 09:00 Furosemide (Lasix) 20 mg DAILY PO Last administered on 09/30/16 09:13; Admin Dose 20 MG; Start 09/26/16 at 09:00 Lactulose (Enulose) 30 gm Q6 PO Last administered on 09/30/16 05:49; Admin Dose 30 GM; Start 09/26/16 at 00:00 Memantine (Namenda) 10 mg BID PO Last administered on 09/30/16 09:12; Admin Dose 10 MG; Start 09/25/16 at 22:30 Ondansetron HCl (Zofran Tab) 4 mg Q6H PRN PO NAUSEA AND/OR VOMITING Last administered on 09/27/16 22:19; Admin Dose 4 MG; Start 09/25/16 at 21:30 Spironolactone (Aldactone) 100 mg DAILY PO Last administered on 09/30/16 09:12 ; Admin Dose 100 MG; Start 09/26/16 at 09:00 Rifaximin (Xifaxan) 550 mg BID PO Last administered on 09/30/16 09:12; Admin Dose 550 MG; Start 09/25/16 at 22:30 Ofloxacin (Ocuflox) 1 drop QID BOTH EYES Last administered on 09/30/16 09:12; Admin Dose 1 DROP; Start 09/25/16 at 22:30; Stop 10/02/16 at 17:01 Docusate Sodium (Colace) 100 mg BID PO Last administered on 09/30/16t 09:12; Admin Dose 100 MG; Start 09/26/16 at 09:00 Acetaminophen (Tylenol Tab) 650 mg Q4H PRN PO PAIN; Start 09/26/16 at 03:00 Bisacodyl (Dulcolax Supp) 10 mg DAILY PRN [place] CONSTIPATION; Start 09/26/16 at 03: 00 Assessment/Plan Additional Assessment/Plan Rehab- Hepatic encephalopathy. Continue with rehab treatment plan Psoriasis. Hypertension. Congestive heart failure. Thrombocytopenia. Asthma. Hypernatremia. History of cerebrovascular accident with good functional recovery. Depression. Dysphagia, on mechanical soft diet. LON JO MD Sep 30, 2016 12:29
--- NOTE | 2016-09-30 15:57 | PN ---
Date/Time of Note Date/Time of Note DATE: 09/30/16 TIME: 15:55 Assessment/Plan VTE Prophylaxis VTE Prophylaxis Intervention: SCD's Lines/Catheters Urinary Cath still in place: No Assessment/Plan Chief Complaint/Hosp Course Patient's continues to work with physical therapy, awake alert, no complaints. ASSESSMENT AND PLAN: - Resolving hepatic encephalopathy with deficit in self-care. Continue her lactulose and rifaximin. - Liver cirrhosis. Continue Lasix and Aldactone for liver cirrhosis. - Chronic congestive heart failure. - Dementia. Continue Namenda. - History of asthma. - Depression. - History of cerebrovascular accident. Further recommendations based on clinical course. Plan of care discussed with Dr. Perez. Problems: Exam/Review of Systems Vital Signs Vitals Vital Signs Date Time Temp Pulse Resp B/P Pulse Ox O2 Delivery O2 Flow Rate FiO2 09/29/16 20:09 98.5 90 18 115/62 98 09/28/16 20:10 Room Air Intake and Output 09/29/16 09/29/16 09/30/16 15:00 23:00 07:00 Intake Total 420 ml Balance 420 ml Exam Constitutional: alert Psych: no complaints Head: normocephalic Neck: non-tender, supple Respiratory: clear to auscultation Cardiovascular: nl pulses Gastrointestinal: non-tender, soft Extremities: normal pulses Results Result Diagram: 09/26/16 0625 09/28/16 0629 Medications Medications Current Medications Fish Oil (Fish Oil) 1,000 mg DAILY PO Last administered on 09/30/16 09:13; Admin Dose 1,000 MG; Start 09/26/16 at 09:00 Furosemide (Lasix) 20 mg DAILY PO Last administered on 09/30/16 09:13; Admin Dose 20 MG; Start 09/26/16 at 09:00 Lactulose (Enulose) 30 gm Q6 PO Last administered on 09/30/16 12:55; Admin Dose 30 GM; Start 09/26/16 at 00:00 Memantine (Namenda) 10 mg BID PO Last administered on 09/30/16 09:12; Admin Dose 10 MG; Start 09/25/16 at 22:30 Ondansetron HCl (Zofran Tab) 4 mg Q6H PRN PO NAUSEA AND/OR VOMITING Last administered on 09/27/16 22:19; Admin Dose 4 MG; Start 09/25/16 at 21:30 Spironolactone (Aldactone) 100 mg DAILY PO Last administered on 09/30/16 09:12 ; Admin Dose 100 MG; Start 09/26/16 at 09:00 Rifaximin (Xifaxan) 550 mg BID PO Last administered on 09/30/16 09:12; Admin Dose 550 MG; Start 09/25/16 at 22:30 Ofloxacin (Ocuflox) 1 drop QID BOTH EYES Last administered on 09/30/16 12:55; Admin Dose 1 DROP; Start 09/25/16 at 22:30; Stop 10/02/16 at 17:01 Docusate Sodium (Colace) 100 mg BID PO Last administered on 09/30/16 09:12; Admin Dose 100 MG; Start 09/26/16 at 09:00 Acetaminophen (Tylenol Tab) 650 mg Q4H PRN PO PAIN; Start 09/26/16 at 03:00 Bisacodyl (Dulcolax Supp) 10 mg DAILY PRN [place] CONSTIPATION; Start 09/26/16 at 03: 00 RACHEL HOFF Sep 30, 2016 15:57
[2016-09-30 19:56] VITALS: BP 126/73; RESP 18
[2016-10-01] MEDS: LACTULOSE 30ML CUP PO SCH ×4 (00:06→17:48)
[2016-10-01 08:07] VITALS: BP 122/72; RESP 18
[2016-10-01] MEDS: MEMANTINE 10 MG TAB PO SCH ×2 (08:40→20:31)
[2016-10-01] MEDS: DOCUSATE SODIUM 100 MG CAP PO SCH ×2 (08:40→20:31)
[2016-10-01] MEDS: OFLOXACIN 0.3% 5 ML OPH BOTH EYES SCH ×4 (08:40→20:34)
[2016-10-01] MEDS: FUROSEMIDE 20 MG TAB PO SCH (08:41)
[2016-10-01] MEDS: FISH OIL 1,000 MG CAP PO SCH (08:41)
[2016-10-01] MEDS: RIFAXIMIN 550 MG TAB PO SCH ×2 (08:41→20:31)
[2016-10-01] MEDS: SPIRONOLACTONE 25 MG TAB PO SCH (08:41)
--- NOTE | 2016-10-01 11:22 | CONS ---
Date/Time of Note Date/Time of Note DATE: 10/01/16 TIME: 11:21 Consult Date/Type/Reason Admit Date/Time Sep 25, 2016 at 17:59 Subjective pulm-cta sba ambulation Objective Vital Signs Date Time Temp Pulse Resp B/P Pulse Ox O2 Delivery O2 Flow Rate FiO2 10/01/16 08:07 97.9 82 18 122/72 96 09/30/16 08:00 Room Air Intake and Output 09/30/16 09/30/16 10/01/16 14:59 22:59 06:59 Intake Total 750 ml 700 ml Output Total 1 ml Balance 749 ml 700 ml Results/Medications Result Diagram: 09/28/16 0629 Medications Current Medications Fish Oil (Fish Oil) 1,000 mg DAILY PO Last administered on 10/01/16 08:41; Admin Dose 1,000 MG; Start 09/26/16 at 09:00 Furosemide (Lasix) 20 mg DAILY PO Last administered on 10/01/16 08:41; Admin Dose 20 MG; Start 09/26/16 at 09:00 Lactulose (Enulose) 30 gm Q6 PO Last administered on 10/01/16 06:18; Admin Dose 30 GM; Start 09/26/16 at 00:00 Memantine (Namenda) 10 mg BID PO Last administered on 10/01/16 08:40; Admin Dose 10 MG; Start 09/25/16 at 22:30 Ondansetron HCl (Zofran Tab) 4 mg Q6H PRN PO NAUSEA AND/OR VOMITING Last administered on 09/27/16 22:19; Admin Dose 4 MG; Start 09/25/16 at 21:30 Spironolactone (Aldactone) 100 mg DAILY PO Last administered on 10/01/16 08:41 ; Admin Dose 100 MG; Start 09/26/16 at 09:00 Rifaximin (Xifaxan) 550 mg BID PO Last administered on 10/01/16 08:41; Admin Dose 550 MG; Start 09/25/16 at 22:30 Ofloxacin (Ocuflox) 1 drop QID BOTH EYES Last administered on 10/01/16 08:40; Admin Dose 1 DROP; Start 09/25/16 at 22:30; Stop 10/02/16 at 17:01 Docusate Sodium (Colace) 100 mg BID PO Last administered on 10/01/16 08:40; Admin Dose 100 MG; Start 09/26/16 at 09:00 Acetaminophen (Tylenol Tab) 650 mg Q4H PRN PO PAIN; Start 09/26/16 at 03:00 Bisacodyl (Dulcolax Supp) 10 mg DAILY PRN [place] CONSTIPATION; Start 09/26/16 at 03: 00 Assessment/Plan Additional Assessment/Plan Rehab- Hepatic encephalopathy. Great progress, anticipate dc home with family soon Psoriasis. Hypertension. Congestive heart failure. Thrombocytopenia. Asthma. Hypernatremia. History of cerebrovascular accident with good functional recovery. Depression. Dysphagia, on mechanical soft diet. LON JO MD Oct 01, 2016 11:22
--- NOTE | 2016-10-01 19:23 | PN ---
Date/Time of Note Date/Time of Note DATE: 10/01/16 TIME: 19:21 Assessment/Plan VTE Prophylaxis VTE Prophylaxis Intervention: SCD's Lines/Catheters Urinary Cath still in place: No Assessment/Plan Chief Complaint/Hosp Course Patient is alert and oriented 3, ammonia level is within normal limits, continue to work with physical therapy. ASSESSMENT AND PLAN: - Resolving hepatic encephalopathy with deficit in self-care. Continue her lactulose and rifaximin. - Liver cirrhosis. Continue Lasix and Aldactone for liver cirrhosis. - Chronic congestive heart failure. - Dementia. Continue Namenda. - History of asthma. - Depression. - History of cerebrovascular accident. Further recommendations based on clinical course. Plan of care discussed with Dr. Perez. Problems: Exam/Review of Systems Vital Signs Vitals Vital Signs Date Time Temp Pulse Resp B/P Pulse Ox O2 Delivery O2 Flow Rate FiO2 10/01/16 08:07 97.9 82 18 122/72 96 09/30/16 08:00 Room Air Intake and Output 09/30/16 09/30/16 10/01/16 15:00 23:00 07:00 Intake Total 750 ml 700 ml Output Total 1 ml Balance 749 ml 700 ml Exam Constitutional: alert Psych: no complaints Head: normocephalic Neck: non-tender, supple Respiratory: clear to auscultation Cardiovascular: nl pulses Gastrointestinal: non-tender, soft Extremities: normal pulses Results Result Diagram: 09/28/16 0629 Results 24 hrs Laboratory Tests Test 10/01/16 16:24 Ammonia 13 Medications Medications Current Medications Fish Oil (Fish Oil) 1,000 mg DAILY PO Last administered on 10/01/16 08:41; Admin Dose 1,000 MG; Start 09/26/16 at 09:00 Furosemide (Lasix) 20 mg DAILY PO Last administered on 10/01/16 08:41; Admin Dose 20 MG; Start 09/26/16 at 09:00 Lactulose (Enulose) 30 gm Q6 PO Last administered on 10/01/16 17:48; Admin Dose 30 GM; Start 09/26/16 at 00:00 Memantine (Namenda) 10 mg BID PO Last administered on 10/01/16 08:40; Admin Dose 10 MG; Start 09/25/16 at 22:30 Ondansetron HCl (Zofran Tab) 4 mg Q6H PRN PO NAUSEA AND/OR VOMITING Last administered on 09/27/16 22:19; Admin Dose 4 MG; Start 09/25/16 at 21:30 Spironolactone (Aldactone) 100 mg DAILY PO Last administered on 10/01/16 08:41 ; Admin Dose 100 MG; Start 09/26/16 at 09:00 Rifaximin (Xifaxan) 550 mg BID PO Last administered on 10/01/16 08:41; Admin Dose 550 MG; Start 09/25/16 at 22:30 Ofloxacin (Ocuflox) 1 drop QID BOTH EYES Last administered on 10/01/16 17:48; Admin Dose 1 DROP; Start 09/25/16 at 22:30; Stop 10/02/16 at 17:01 Docusate Sodium (Colace) 100 mg BID PO Last administered on 10/01/16 08:40; Admin Dose 100 MG; Start 09/26/16 at 09:00 Acetaminophen (Tylenol Tab) 650 mg Q4H PRN PO PAIN; Start 09/26/16 at 03:00 Bisacodyl (Dulcolax Supp) 10 mg DAILY PRN [place] CONSTIPATION; Start 09/26/16 at 03: 00 RACHEL HOFF Oct 01, 2016 19:23
[2016-10-01 20:00] VITALS: BP 115/64; RESP 18
[2016-10-02] MEDS: LACTULOSE 30ML CUP PO SCH ×2 (00:19→04:59)
[2016-10-02 07:30] VITALS: BP 113/55; RESP 18
[2016-10-02] MEDS: FISH OIL 1,000 MG CAP PO SCH (08:32)
[2016-10-02] MEDS: DOCUSATE SODIUM 100 MG CAP PO SCH (08:32)
[2016-10-02] MEDS: MEMANTINE 10 MG TAB PO SCH (08:32)
[2016-10-02] MEDS: RIFAXIMIN 550 MG TAB PO SCH (08:32)
[2016-10-02] MEDS: OFLOXACIN 0.3% 5 ML OPH BOTH EYES SCH (08:32)
[2016-10-02] MEDS: SPIRONOLACTONE 25 MG TAB PO SCH (08:33)
[2016-10-02] MEDS: FUROSEMIDE 20 MG TAB PO SCH (08:33)
--- NOTE | 2016-10-02 13:07 | PN ---
DATE: 10/02/2016 SUBJECTIVE: Follow up on hepatic encephalopathy, cirrhosis of liver, dementia, chronic compensated congestive heart failure. The patient is breathing comfortably on room air. Denies any chest pain or shortness of breath, no abdominal pain. Patient remains awake, alert, no gross focal deficit. T he patient is back to her baseline as far as mental status is concerned, no recent GI bleed. No rec ent focal weakness. PHYSICAL EXAMINATION: GENERAL: The patient is conscious, awake, alert. VITAL SIGNS: Temperature 98.3, pulse 78, respirations 18, blood pressure 113/55, O2 sat 100% on lakeisha m air. HEENT: Conjunctivae and lids normal. Oropharynx clear. NECK: Supple. No mass, no thyromegaly. CHEST: Fairly clear. No use of accessory muscles. CARDIOVASCULAR: S1, S2 normal. No murmur, gallop, or rub. ABDOMEN: Soft, nondistended, nontender. Bowel sounds present. EXTREMITIES: No leg edema. NEUROLOGIC: The patient is awake, alert with no gross focal deficit. LABORATORY DATA: Last ammonia level was 13. The patient did have mild hypercalcemia with last calc ium being 10.5. She will have followup as an outpatient. IMPRESSION: 1. Cirrhosis of liver. 2. Hepatic encephalopathy. 3. Asthma. 4. Stable congestive heart failure. PLAN: The patient will be discharged home. MEDICATIONS: Patient will be continued on: 1. Lasix. 2. Aldactone. 3. Lactulose. 4. Namenda. 5. Rifaximin. Will have followup with PMD as an outpatient for routine checkup and monitoring her calcium as an ou tpatient. Dictated By: NICKI HUDDLESTON/REUBEN Conf#: [id number] DID#: [id number]
--- NOTE | 2016-10-02 19:28 | DS ---
Date/Time of Note Date/Time of Note DATE: 10/02/16 TIME: 19:28 Discharge Summary Admission/Discharge Info Admit Date/Time Sep 25, 2016 at 17:59 Discharge Date/Time Oct 02, 2016 at 11:20 Hospital Course Patient is alert and oriented 3, ammonia level is within normal limits, continue to work with physical therapy. ASSESSMENT AND PLAN: - Resolving hepatic encephalopathy with deficit in self-care. Continue her lactulose and rifaximin. - Liver cirrhosis. Continue Lasix and Aldactone for liver cirrhosis. - Chronic congestive heart failure. - Dementia. Continue Namenda. - History of asthma. - Depression. - History of cerebrovascular accident. Further recommendations based on clinical course. Plan of care discussed with Dr. Perez. Home Meds Reported Medications Furosemide* (Furosemide*) 20 Mg Tablet, 20 MG PO DAILY, #60 TAB 09/16/16 Lisinopril* (Lisinopril*) 40 Mg Tablet, 40 MG PO DAILY, #30 TAB 09/16/16 Pregabalin* (Lyrica*) 50 Mg Capsule, 50 MG PO BID, CAP 09/16/16 Aspirin (Aspirin) 81 Mg Chew, 81 MG PO DAILY, TAB.CHEW 09/16/16 Metoprolol Tartrate* (Lopressor*) 25 Mg Tab, 25 MG PO BID, #60 TAB 09/16/16 Memantine* (Namenda* XR) 28 Mg Cap.spr.24, 28 MG PO DAILY, #30 TAB 09/16/16 Amlodipine Besylate* (Amlodipine Besylate*) 2.5 Mg Tablet, 5 MG PO DAILY, #30 TAB 09/16/16 Tramadol Hcl* (Ultram*) 50 Mg Tablet, 50 MG PO Q8 for PAIN, TAB 09/16/16 Meclizine Hcl* (Meclizine Hcl*) 25 Mg Tablet, 25 MG PO Q8H Y for DIZZINESS, TAB 09/16/16 Omeprazole* (Omeprazole*) 20 Mg Capsule.dr, 20 MG PO DAILY, #30 CAP 09/16/16 Lactulose* (Lactulose*) 10 Gm/15 Ml Solution, 10 GM PO Q8, ML 09/16/16 Cholecalciferol* (Vitamin D*) 400 Unit Tablet, 400 UNIT PO DAILY, TAB 09/16/16 Diclofenac Sodium* (Diclofenac Sodium*) 75 Mg Tablet., 75 MG PO BID, #60 TAB 09/16/16 Ofloxacin* (Ocuflox*) 0.3%-5 Ml Ophth Drops, 1 DROP BOTH EYES QID, BOTTLE 09/16/16 Nitrofurantoin Macrocrystal* (Nitrofurantoin Macrocrystal*) 100 Mg Capsule, 100 MG PO HS, CAP 09/16/16 Ferrous Sulfate* (Ferrous Sulfate*) 325 Mg Tabec, 325 MG PO DAILY, TAB 09/16/16 Icosapent Ethyl (VASCEPA) 1 Gm Capsule, 1 GM PO DAILY, CAP 09/16/16 Primary Care Provider DO SANFORD Hanson RANBIR Oct 02, 2016 19:28
--- NOTE | 2016-10-03 15:38 | DS ---
DATE OF ADMISSION: 09/25/2016 DATE OF DISCHARGE: 10/02/2016 ADMISSION DIAGNOSES: 1. Hepatic encephalopathy. 2. Psoriasis. 3. Hypertension. 4. Congestive heart failure. 5. Thrombocytopenia. 6. Asthma. 7. Hyponatremia. 8. History of cerebrovascular accident with good functional recovery. 9. Depression. 10. Dysphagia, on mechanical soft diet. 11. Impairments in self-care, mobility and cognition. DISCHARGE DIAGNOSES: 1. Hepatic encephalopathy. 2. Psoriasis. 3. Hypertension. 4. Congestive heart failure. 5. Thrombocytopenia. 6. Asthma. 7. Hyponatremia. 8. History of cerebrovascular accident with good functional recovery. 9. Depression. 10. Dysphagia, improved. 11. Improvements in self-care, mobility and cognition. HOSPITAL COURSE: The patient was admitted for comprehensive interdisciplinary acute rehab and made excellent functional gains during the course of the stay. The patient progressed from an initial ma ximal assist for self-care and mobility tasks and progressed to the point of standby assist for all areas of self-care and mobility including ambulating over 150 feet with the use of a front-wheel wal ker. The patient is being discharged home with the recommendation of home health physical therapy a nd occupational therapy followup. DISCHARGE MEDICATIONS: Per the medication reconciliation sheet. CONDITION ON DISCHARGE: Stable. Dictated By: LON HAQ/REUBEN Conf#: [id number] DID#: [id number]
== END 2016-10-02 11:20 | disposition home health service (06) | DRG 443 ==
LOC: VRC 17:59
PROVIDERS: ADMIT Physical Medicine & Rehabilitation; ATTEND Internal Medicine
DX: K72.90 Hepatic failure, unspecified without coma (principal); D69.6 Thrombocytopenia, unspecified; I50.9 Heart failure, unspecified; L40.9 Psoriasis, unspecified; I10 Essential (primary) hypertension; J45.909 Unspecified asthma, uncomplicated; F32.9 Major depressive disorder, single episode, unspecified; R13.10 Dysphagia, unspecified; Z86.73 Personal history of transient ischemic attack (TIA), and cerebral infarction without residual deficits; Z74.09 Other reduced mobility
CPT/HCPCS: 80048; 80053; 81001; 82140; 85025; 87086; 92507; 92523; 92610; 97110; 97112; 97116; 97150; 97163; 97167; 97530; 97535